=== PATIENT | female | born 1950 | race Caucasian/White ===

== ENCOUNTER 2021-01-23 08:04 | Inpatient (IN) | payer MEDICARE, SELFPAY ==
--- NOTE | ~2021-01-23 | XR_ITS ---
EXAMINATION: XR KNEE, RIGHT CLINICAL INFORMATION: Right knee pain, status post fall COMPARISON: None TECHNIQUE: AP and crosstable lateral of the right knee. FINDINGS: Fracture through the mid body of the patella with oblique orientation in superior to inferior direction extending from anterior to posterior margins is best seen on the lateral view. There is mild distraction of the fracture fragments. Overlying soft tissue swelling and associated joint effusion are seen. No evidence of fracture of the visualized femur, tibia and fibula. No soft tissue air or radiopaque foreign body. XR/XR knee RT 2V IMPRESSION: Mildly displaced right patellar fracture with associated suprapatellar joint effusion and overlying significant soft tissue swelling.
--- NOTE | ~2021-01-23 | FL_ITS ---
EXAMINATION: XR FLUOROSCOPY WITH IMAGES CLINICAL INFORMATION: ORIF right patella COMPARISON: None. TECHNIQUE: Fluoroscopy performed by Dr. Lewis Mota. Fluoroscopy time: 1.1 minutes DAP: 0.654 mGycm2 Images: 2 FINDINGS: Imaging guidance was utilized for a procedure. 2 fluoroscopic images were saved and are available for review. These images demonstrate hardware fixation of the right patella. FL/FL guidance in OR IMPRESSION: Imaging guidance for procedure. For details regarding procedure and findings, please refer to the operative report.
--- NOTE | ~2021-01-23 | XR_ITS ---
EXAMINATION: XR KNEE, RIGHT CLINICAL INFORMATION: Right patellar fracture. COMPARISON: Right knee x-rays performed earlier on the same day. TECHNIQUE: Lateral views of the right knee are obtained. FINDINGS: Displaced oblique fracture through the mid to lower third of the patella is noted with maximum craniocaudal displacement of approximately 1.2 cm anteriorly. Overlying soft tissue swelling and joint effusion representing hemarthrosis are again noted. There could be additional nondisplaced fracture through the inferior tip of the right patella. XR/XR knee RT 1V IMPRESSION: Right patellar fracture/s as described above.
[2021-01-23 08:32] VITALS: BP 113/88; PULSE 65; RESP 17; TEMP 36.9; O2SAT 98; BMI 19.7
--- NOTE | 2021-01-23 08:52 | ED_ITS ---
HPI - Extremity Injury (Lower) General Chief Complaint: Extremity Injury, Lower Stated Complaint: rt knee injury - fall Time Seen by Provider: 01/23/21 08:31 Source: patient Mode of arrival: wheelchair Limitations: no limitations History of Present Illness HPI Narrative: 70 yo female previously healthy here with complaints of right knee pain. Patient tells me that she was out this morning preparing to do her morning row when she slipped landing directly on the right knee. No head injury or loss of consciousness. No other complaints. Not on any AC therapy Related Data Allergies Allergy/AdvReac Type Severity Reaction Status Date / Time No Known Allergies Allergy Verified 01/23/21 09:55 Review of Systems Review of Systems: Yes all other systems are reviewed and are negative Constitutional: Constitutional: Reports no additional constitutional complaints, Denies body ache(s), Denies chills, Denies fever(s), Denies headache(s) and Denies weakness Eyes: Eyes: Reports no additional eye complaints and Denies change in vision ENT: Reports system reviewed and no additional complaints, except as documented, Denies dizziness, Denies headache(s), Denies nasal congestion, Denies nasal discharge and Denies neck pain Cardiovascular: Cardiovascular: Reports no additional cardiovascular complaints, Denies chest pain, Denies leg edema and Denies dyspnea Respiratory: Respiratory: Reports no additional respiratory complaints, Denies cough and Denies dyspnea Gastrointestinal: Gastrointestinal: Reports no additional gastrointestinal complaints, Denies abdominal pain, Denies diarrhea, Denies nausea and Denies vomiting Genitourinary: Genitourinary: Reports no additional female genitourinary complaints and Denies urinary incontinence Musculoskeletal: Musculoskeletal: Reports no additional musculoskeletal complaints, Denies back pain, Reports arthralgias, Denies joint swelling, Reports limited range of motion, Denies neck pain, Denies numbness and Denies ti ngling Integumentary/Breasts: Skin/Breast: Reports system reviewed and no additional complaints, except as docu and Denies rash Neurologic: Reports system reviewed and no additional complaints, except as documented, Denies Abnormal speech present, Denies dizziness, Denies headache(s), Denies numbness, Denies tingling and Denies weakness PMFSH Past Medical History Attestation statement: The following information was validated with the patient. Source: old records reviewed and nursing notes reviewed Social History Social History Advance Directives: No Physical Exam Vital Signs: Vital Signs: Last Vital Signs Temp 97.9 F 01/23/21 11:29 Pulse 62 01/23/21 11:29 Resp 18 01/23/21 11:29 BP 148/88 H 01/23/21 11:29 Pulse Ox 98 01/23/21 11:29 Body Mass Index 19.7 Const: General: cooperative, healthy appearing, comfortable and no acute distress Orientation/consciousness: patient oriented x3 Limitations: no limitations HENMT: Head: Yes normal to inspection Ears: hearing grossly normal bilaterally General nose exam: Normal external nose present Face and sinus: Yes normal facial exam Mouth: Normal oral and palatal mucosa present Throat: Yes posterior oropharynx normal Eyes: General: appearance normal, both eyes and all related structures Pupils: Equal, round and reactive pupils present Neck: Neck: Yes normal visual inspection Chest: Chest palpation & inspection: normal inspection of the chest Resp: Effort & Inspection: normal respiratory effort Auscultation: clear to auscultation bilaterally Cardio: Rate: regular rate Rhythm: regular rhythm Peripheral pulses: Peripheral pulses 2+ throughout GI: Inspection: Yes normal to inspection Palpation (GI): Soft to palpation and nontender Auscultation: normal bowel sounds Back/Spine/Pelvis: Thoracic/Lumbar Spine: thoracic and lumbar spine normal to inspection Skin: General skin exam: no rashes or lesions noted Neuro: General: patient oriented x3, no focal motor deficits and normal sensation to monofilament Cranial nerves: Yes Equal, round and reactive pupils present Cognition (Neuro): normal cognition Speech: No Abnormal speech present Gait exam (Neuro): Normal gait present Motor exam (neuro): 5/5 motor strength present throughout Extrem: Other: to the right knee there is a large amount of swelling with ecchymosis and tenderness. Patient is unable to flex or extend the knee due to pain. There is no tenderness over the quad or the lower extremity. 2+ DP and PT pulses General: Yes normal to inspection, Yes no pedal edema and Yes no calf tenderness Course Course Course Narrative: 70-year-old female here with right knee pain after landing directly on the knee this morning. X-ray shows a patellar fracture with mild displacement. Call out Orthopedics to discuss 1030- spoke to Orthopedics. They will come to evaluate the patient as she may need surgical repair its weekend. Requesting additional images. 1150-patient was seen by Orthopedics. Plan for admission for operative repair minute. Preop labs, COVID screen and EKG are ordered. Per request artur wrap and knee immobilizer placed. MDM - Extremity Injury (Lower) Medical Records Attestation: I reviewed the patient's medical records. Lab Data Attestation: I reviewed the patient's lab results. Result diagrams: 01/23/21 11:03 01/23/21 11:03 Labs: Lab Results 01/23/21 01/23/21 01/23/21 Range/Units 11:03 11:03 11:03 WBC 7.0 (4.8-10.8) X10*3/uL RBC 4.94 (4.20-5.50) X10*6/uL Hgb 14.2 (12.0-16.0) g/dl Hct 41.4 (37.0-47.0) % MCV 83.8 (80.0-98.0) fL MCH 28.7 (27.0-33.0) pg MCHC 34.3 (31.0-35.0) g/dl RDW 12.5 (11.0-16.0) % Plt Count 213 (160-400) X10*3/uL MPV 9.5 (9.4-12.3) fL Immature Gran % (Auto) 0.3 (0.0-0.4) % Neut % (Auto) 72.9 (45-73) % Lymph % (Auto) 20.2 (20-40) % [place] % (Auto) 4.9 (2-11) % Eos % (Auto) 1.3 (0-4) % Baso % (Auto) 0.4 (0-2) % Lymph # (Auto) 1.4 (1.2-4.9) X10*3/uL [place] # (Auto) 0.3 (0.1-1.2) X10*3/uL Eos # (Auto) 0.1 (0.0-0.4) X10*3/uL Baso # (Auto) 0.0 (0.0-0.2) X10*3/uL Abs Immat Gran (auto) 0.02 (0.00-0.03) X10*3/uL Absolute Neuts (auto) 5.1 (2.0-8.3) x10*3/uL Absolute Nucleated RBC 0.000 (0.0-0.012) X10*3/uL Nucleated RBC % (auto) 0.0 (0.0-0.2) /100WBC PT 10.9 (9.9-13.0) SEC INR 1.0 (0.9-1.1) APTT 35.9 (24.1-38.0) SEC Sodium 135 (135-145) mmol/L Potassium 4.7 (3.3-5.1) mmol/L Chloride 101 (96-108) mmol/L Carbon Dioxide 22 (22-29) mmol/L Anion Gap 17 (12-20) BUN 13 (9-16) mg/dL Creatinine 0.64 (0.5-1.4) mg/dL Estim Creat Clear Calc 62.3 Estimated GFR > 60 Random Glucose 97 (60-115) mg/dL Calcium 9.1 (8.4-10.2) mg/dL COVID-19 ([facility]) (Negative) COVID-19 Clin Com Blood Type Antibody Screen 01/23/21 01/23/21 Range/Units 11:03 11:37 WBC (4.8-10.8) X10*3/uL RBC (4.20-5.50) X10*6/uL Hgb (12.0-16.0) g/dl Hct (37.0-47.0) % MCV (80.0-98.0) fL MCH (27.0-33.0) pg MCHC (31.0-35.0) g/dl RDW (11.0-16.0) % Plt Count (160-400) X10*3/uL MPV (9.4-12.3) fL Immature Gran % (Auto) (0.0-0.4) % Neut % (Auto) (45-73) % Lymph % (Auto) (20-40) % [place] % (Auto) (2-11) % Eos % (Auto) (0-4) % Baso % (Auto) (0-2) % Lymph # (Auto) (1.2-4.9) X10*3/uL [place] # (Auto) (0.1-1.2) X10*3/uL Eos # (Auto) (0.0-0.4) X10*3/uL Baso # (Auto) (0.0-0.2) X10*3/uL Abs Immat Gran (auto) (0.00-0.03) X10*3/uL Absolute Neuts (auto) (2.0-8.3) x10*3/uL Absolute Nucleated RBC (0.0-0.012) X10*3/uL Nucleated RBC % (auto) (0.0-0.2) /100WBC PT (9.9-13.0) SEC INR (0.9-1.1) APTT (24.1-38.0) SEC Sodium (135-145) mmol/L Potassium (3.3-5.1) mmol/L Chloride (96-108) mmol/L Carbon Dioxide (22-29) mmol/L Anion Gap (12-20) BUN (9-16) mg/dL Creatinine (0.5-1.4) mg/dL Estim Creat Clear Calc Estimated GFR Random Glucose (60-115) mg/dL Calcium (8.4-10.2) mg/dL COVID-19 ([facility]) Negative (Negative) COVID-19 Clin Com See Note Blood Type O Negative Antibody Screen NEGATIVE Imaging Data right knee xray: Attestation: I personally reviewed and interpreted this imaging study as follows: Radiologist's impression: FINDINGS: Fracture through the mid body of the patella with oblique orientation in superior to inferior direction extending from anterior to posterior margins is best seen on the lateral view. There is mild distraction of the fracture fragments. Overlying soft tissue swelling and associated joint effusion are seen. No evidence of fracture of the visualized femur, tibia and fibula. No soft tissue air or radiopaque foreign body. XR/XR knee RT 2V IMPRESSION: Mildly displaced right patellar fracture with associated suprapatellar joint effusion and overlying significant soft tissue swelling. ? Procedures Procedure Narrative Procedure Narrative: Knee immobilizer and Artur wrap Discharge Plan Discharge Clinical Impression: Closed fracture of right patella Patient Disposition: Admitted As Inpatient
[2021-01-23 11:07] LABS: MANUAL DIFF FLAG NO
[2021-01-23 11:09] LABS: Basophils Percent Auto 0.4 % (0-2); Eosinophils Absolute Auto 0.1 X10*3/uL (0.0-0.4); Eosinophils Percent Auto 1.3 % (0-4); Hematocrit 41.4 % (37.0-47.0); Hemoglobin 14.2 g/dl (12.0-16.0); Imm Gran Abs Auto 0.02 X10*3/uL (0.00-0.03); Imm Gran Pct Auto 0.3 % (0.0-0.4); Lymphocytes Absolute Auto 1.4 X10*3/uL (1.2-4.9); Lymphocytes Percent Auto 20.2 % (20-40); Mean Corpuscular HGB Conc 34.3 g/dl (31.0-35.0); Mean Corpuscular Hemoglobin 28.7 pg (27.0-33.0); Mean Corpuscular Volume 83.8 fL (80.0-98.0); Mean Platelet Volume 9.5 fL (9.4-12.3); Monocytes Absolute Auto 0.3 X10*3/uL (0.1-1.2); Monocytes Percent Auto 4.9 % (2-11); Neutrophils Absolute Auto 5.1 x10*3/uL (2.0-8.3); Neutrophils Percent Auto 72.9 % (45-73); Platelet Count 213 X10*3/uL (160-400); Red Blood Count 4.94 X10*6/uL (4.20-5.50); Red Cell Distribution Width 12.5 % (11.0-16.0)
[2021-01-23] MEDS: ondansetron HCL 4 MG/2 ML VIAL IVPUSH (11:10)
[2021-01-23] MEDS: Morphine Sulfate 2 MG/ML CARTRIDGE IVPUSH (11:12)
[2021-01-23 11:16] LABS: Prothrombin Time 10.9 SEC (9.9-13.0)
[2021-01-23 11:18] LABS: Partial Thromboplastin Time 35.9 SEC (24.1-38.0)
[2021-01-23 11:25] LABS: Anion Gap 17 (12-20); Blood Urea Nitrogen 13 mg/dL (9-16); Calcium 9.1 mg/dL (8.4-10.2); Carbon Dioxide 22 mmol/L (22-29); Chloride 101 mmol/L (96-108); Creatinine Clr Calc Pharmacy 62.3; Estimated Glomerular Filt Rate > 60; Glucose Random 97 mg/dL (60-115); Potassium 4.7 mmol/L (3.3-5.1); Sodium 135 mmol/L (135-145)
--- NOTE | 2021-01-23 11:28 | ECG_ITS ---
Test Reason : EXTREMITY WEAKNESS Blood Pressure : / mmHG Vent. Rate : 059 BPM Atrial Rate : 059 BPM P-R Int : 162 ms QRS Dur : 070 ms QT Int : 466 ms P-R-T Axes : 052 028 062 degrees QTc Int : 461 ms Sinus bradycardia Nonspecific ST abnormality Lateral leads Low voltage QRS Abnormal ECG No previous ECGs available Referred By: Karrie Burns Electronically Signed By:DURGA OLSEN MD
[2021-01-23 11:29] VITALS: BP 148/88; PULSE 62; RESP 18; TEMP 36.6; O2SAT 98
[2021-01-23 11:38] LABS: COVID-19 Test Negative (Negative)
--- NOTE | 2021-01-23 13:08 | PM.IMCN ---
History of Present Illness Data of Consult Service Date: 01/23/21 Requesting physician: Richard Haque Primary Care Provider: Marii Caro MD [facility] Reason for consult: pre operative evaluation This is a 70-year-old female with no significant past medical history who presented to the emergency department after a mechanical fall. She denies any dizziness prior to her fall, reported that she slipped on ice and fell onto her knees. Workup in the emergency department revealed displaced oblique fracture of the right patella. She was admitted to the ortho service and hospitalists were consulted for a preoperative evaluation. Patient states that she has no medical issues and does not take any medication at home. She has had severe nausea and vomiting in the past with general anesthesia. She had a stress test many years ago due to bigeminy and palpitations which was negative and since that time has had no indication for cardiology follow up. She has no shortness of breath. Her EKG showed sinus bradycardia. Routine lab work shows no evidence of electrolyte abnormalities or renal dysfunction. Review of Systems Review of Systems: Yes all other systems are reviewed and are negative Constitutional: Constitutional: Denies chills and Denies fever(s) Cardiovascular: Cardiovascular: Denies chest pain Respiratory: Respiratory: Denies cough Gastrointestinal: Gastrointestinal: Denies abdominal pain PMFSH Functional capacity: independent ambulation Family History Brother Sarcoidosis Pertinent family history: . Surgical History (Updated 01/23/21 @ 13:38 by ORTIZ Thompson) H/O right wrist surgery Social History (Updated 01/23/21 @ 13:39 by ORTIZ Thompson) Alcohol intake: current Alcohol intake frequency: holidays/special occasions only Patient Tobacco Use Status: Never used Tobacco Advance Directives: No Meds Allergies Allergy/AdvReac Type Severity Reaction Status Date / Time No Known Allergies Allergy Verified 01/23/21 09:55 Active Medications: Current Medications Acetaminophen (Acetaminophen Supp 650 Mg Supp.Rect) 650 mg [place] Q6H PRN PRN Reason: Pain, Mild (Pain Scale 1-3) Docusate Sodium (Docusate Sodium 100 Mg Capsule) 100 mg PO BID SLY Ondansetron HCl (Ondansetron Hcl 4 Mg/2 Ml Vial) 4 mg IVPUSH Q8H PRN PRN Reason: Nausea and Vomiting Oxycodone HCl (Oxycodone Hcl Immed Release 5 Mg Tablet) 5 mg PO Q4H PRN PRN Reason: Pain, Moderate (Pain Scale 4-6 Physical Exam Vital Signs and Narrative: Vital Signs: Last Vital Signs Temp 97.9 F 01/23/21 11:29 Pulse 62 01/23/21 11:29 Resp 18 01/23/21 11:29 BP 148/88 H 01/23/21 11:29 Pulse Ox 98 01/23/21 11:29 Body Mass Index 19.7 Const: General: cooperative, healthy appearing, comfortable, no acute distress, alert and awake Nutritional Appearance: well nourished Orientation/consciousness: patient oriented x3 HENMT: Head: Yes normocephalic and Yes atraumatic Eyes: Sclerae: sclerae normal Resp: Effort & Inspection: normal respiratory effort and no respiratory distress Auscultation: clear to auscultation bilaterally Cardio: Rate: regular rate Rhythm: regular rhythm GI: Inspection: No distended Palpation (GI): Soft to palpation and nontender Neuro: General: patient oriented x3 Cranial nerves: Yes CN's II-XII intact bilaterally and Yes Bilaterally intact EOM present Extrem: Other: right knee swelling; abrasion; no erythema Results Labs CBC and Chem 7: 01/23/21 11:03 01/23/21 11:03 Labs: Laboratory Results - last 24 hr 01/23/21 01/23/21 01/23/21 11:03 11:03 11:03 MCV 83.8 MCH 28.7 MCHC 34.3 RDW 12.5 Plt Count 213 MPV 9.5 Immature Gran % (Auto) 0.3 Neut % (Auto) 72.9 Lymph % (Auto) 20.2 [place] % (Auto) 4.9 Eos % (Auto) 1.3 Baso % (Auto) 0.4 Lymph # (Auto) 1.4 [place] # (Auto) 0.3 Eos # (Auto) 0.1 Baso # (Auto) 0.0 Abs Immat Gran (auto) 0.02 Absolute Neuts (auto) 5.1 Absolute Nucleated RBC 0.000 Nucleated RBC % (auto) 0.0 PT 10.9 INR 1.0 APTT 35.9 Anion Gap 17 Estim Creat Clear Calc 62.3 Estimated GFR > 60 Random Glucose 97 Calcium 9.1 COVID-19 ([facility]) COVID-19 Clin Com Blood Type Antibody Screen 01/23/21 01/23/21 11:03 11:37 MCV MCH MCHC RDW Plt Count MPV Immature Gran % (Auto) Neut % (Auto) Lymph % (Auto) [place] % (Auto) Eos % (Auto) Baso % (Auto) Lymph # (Auto) [place] # (Auto) Eos # (Auto) Baso # (Auto) Abs Immat Gran (auto) Absolute Neuts (auto) Absolute Nucleated RBC Nucleated RBC % (auto) PT INR APTT Anion Gap Estim Creat Clear Calc Estimated GFR Random Glucose Calcium COVID-19 ([facility]E) Negative COVID-19 Clin Com See Note Blood Type O Negative Antibody Screen NEGATIVE Imaging Radiologist's Impressions: Impressions Knee X-Ray 01/23/21 08:29 IMPRESSION: Mildly displaced right patellar fracture with associated suprapatellar joint effusion and overlying significant soft tissue swelling. Knee X-Ray 01/23/21 09:55 IMPRESSION: Right patellar fracture/s as described above. Assessment and Plan (1) Closed fracture of right patella: Status: Acute This is a 70-year-old female with no known past medical history who presents to the emergency department after mechanical fall found to have a right patellar fracture Right patellar fracture Management per Orthopedic Service No cardiopulmonary disease. Good functional status. No ischemic changes on EKG. RCRI Class 1 Risk. No prior workup required prior to planned procedure. There are no active medical conditions at this time. Thank you for allowing us to participate in the care of this patient. We will follow along with you. Attending: Dr. Luque
--- NOTE | 2021-01-23 14:22 | PC.NURSE ---
NAD, NO PAIN AT REST, ATE LUNCH, KNEE IMMOBILIZER PLACED AND PT HAS BEEN PLACING ICE ON KNEE ON/OFF
[2021-01-23] MEDS: oxyCODONE HCl Immed Release 5 MG TABLET PO ×3 (14:55→22:52)
--- NOTE | 2021-01-23 15:32 | P.HPOP_ITS ---
History of Present Illness History of Present Illness Date of Service: 01/23/21 Chief complaint: R PHAN FACTDICK Narrative: Karina Armstrong is a 70 year old female who presented to the ED after sustaining a fall onto her knee. She states she slipped on ice and fell. She is unable to weight bear on the right lower extremity due to pain. While in the ED, xrays were significant for a displaced patella fracture. Orthopedics was called and the decision was made to admit her to our service for surgical intervention. Hospitalist team was consulted for pre op clearance. She states she lives on a second floor apartment and helps care for her daughter. 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 Review of Systems Review of Systems: Yes all other systems are reviewed and are negative PMFSH Past Medical History Functional capacity: independent ambulation Family History Family History Brother Sarcoidosis Surgical History Surgical History H/O right wrist surgery Social History Social History Alcohol intake: current Alcohol intake frequency: holidays/special occasions only Patient Tobacco Use Status: Never used Tobacco Advance Directives: No Meds Allergies Allergy/AdvReac Type Severity Reaction Status Date / Time No Known Allergies Allergy Verified 01/23/21 09:55 Active Medications: Current Medications Acetaminophen (Acetaminophen Supp 650 Mg Supp.Rect) 650 mg [place] Q6H PRN PRN Reason: Pain, Mild (Pain Scale 1-3) Docusate Sodium (Docusate Sodium 100 Mg Capsule) 100 mg PO BID SLY Dextrose/Sodium Chloride (D51/2ns) 1,000 mls @ 80 mls/hr IVCONT .[id number] SLY Ondansetron HCl (Ondansetron Hcl 4 Mg/2 Ml Vial) 4 mg IVPUSH Q8H PRN PRN Reason: Nausea and Vomiting Oxycodone HCl (Oxycodone Hcl Immed Release 5 Mg Tablet) 5 mg PO Q4H PRN PRN Reason: Pain, Moderate (Pain Scale 4-6 Last Admin: 01/23/21 14:55 Dose: 5 mg Documented by: Sodium Chloride (0.9 % Sodium Chloride Flush 3 Ml Syringe) 3 ml IVFLUSH QSHIFT [facility] Trazodone HCl (Trazodone Hcl 25 Mg Halftab) 25 mg PO BEDTIME PRN PRN Reason: Sleep Home Medications Medication Instructions Recorded Confirmed Last Taken Type No Known Home Meds 01/23/21 01/23/21 Unknown History Physical Exam Vital Signs: Vital Signs: Last Vital Signs Temp 97.9 F 01/23/21 11:29 Pulse 62 01/23/21 11:29 Resp 18 01/23/21 11:29 BP 148/88 H 01/23/21 11:29 Pulse Ox 98 01/23/21 11:29 Body Mass Index 19.7 Const: General: cooperative, healthy appearing, comfortable, no acute distress, well developed and alert Orientation/consciousness: patient oriented x3 HENMT: Head: Yes normal to inspection, Yes normocephalic and Yes atraumatic Eyes: General: appearance normal, both eyes and all related structures Neck: Neck: Yes normal visual inspection and Yes no lymphadenopathy Resp: Effort & Inspection: normal respiratory effort and able to speak in complete sentences Cardio: Rate: regular rate Peripheral pulses: Peripheral pulses 2+ throughout GI: Inspection: Yes normal to inspection Palpation (GI): Soft to palpation Skin: General skin exam: no rashes or lesions noted Neuro: General: patient oriented x3 Extrem: Other: Skin intact. Right knee large hematoma with ecchymosis and tenderness.? Patient is unable to flex or extend the knee due to pain.? There is no tenderness over the quad or the lower extremity. pulses present. Psych: Appearance: grossly normal Mental Status: mental status grossly normal Results Labs Result Diagrams: 01/23/21 11:03 01/23/21 11:03 Labs: H & H 01/23/21 Range/Units 11: Hgb 14.2 (12.0-16.0) g/dl Hct 41.4 (37.0-47.0) % Coagulation 01/23/21 Range/Units 11: INR 1.0 (0.9-1.1) All other labs normal. Assessment and Plan (1) Closed fracture of right patella: Status: Acute I discussed the case with Dr Mota and explained the extent of the injury to the patient and options available which include surgical intervention. I explained the procedure in detail along with the length of recovery and rehab course. I explained the risk, benefits and alternatives. Risk including, but not limited to infection, blood clots, bleeding, non union or malunion and nerve/tissue damage to surrounding areas. I answered all their questions and with their understanding they have consented to move forward with Operative Fixation of the Right patella. The patient will be T&S, med clearance obtained and NPO after midnight. Quality Stroke Does the patient have a stroke diagnosis?: No VTE Prior VTE?: No VTE Risk Level:: Surgical - high VTE Device Contraindication: N/A - Device Ordered VTE Drug Contraindication: Treatment Not Indicated Procedures Date of Service Date of Service: 01/23/21
[2021-01-23] MEDS: Dextrose 5 % and 0.45 % NaCl 1,000 ML 80 ML IVCONT ×2 (15:56→18:07)
[2021-01-23 17:38] VITALS: BP 125/65; PULSE 55; RESP 18; TEMP 37.3; O2SAT 96
[2021-01-23 20:09] VITALS: BP 127/66; PULSE 61; RESP 18; TEMP 37.1; O2SAT 97
[2021-01-23] MEDS: traZODone HCL 25 MG HALFTAB PO (22:59)
[2021-01-24] VITALS (12 sets, daily range): BP systolic 92–145; BP diastolic 59–91; PULSE 59–82; RESP 15–18; TEMP 36.4–36.9; O2SAT 95–100
[2021-01-24] MEDS: Morphine Sulfate 4 MG/ML CARTRIDGE IVPUSH (02:04)
[2021-01-24 06:27] LABS: MANUAL DIFF FLAG NO
[2021-01-24 07:04] LABS: Basophils Absolute Auto 0.1 X10*3/uL (0.0-0.2); Basophils Percent Auto 0.7 % (0-2); Eosinophils Absolute Auto 0.1 X10*3/uL (0.0-0.4); Eosinophils Percent Auto 1.2 % (0-4); Hematocrit 32.5 % (37.0-47.0); Hemoglobin 11.2 g/dl (12.0-16.0); Imm Gran Abs Auto 0.03 X10*3/uL (0.00-0.03); Imm Gran Pct Auto 0.4 % (0.0-0.4); Lymphocytes Absolute Auto 1.8 X10*3/uL (1.2-4.9); Mean Corpuscular HGB Conc 34.5 g/dl (31.0-35.0); Mean Corpuscular Hemoglobin 28.9 pg (27.0-33.0); Monocytes Absolute Auto 0.6 X10*3/uL (0.1-1.2); Monocytes Percent Auto 7.9 % (2-11); Neutrophils Absolute Auto 4.9 x10*3/uL (2.0-8.3); Neutrophils Percent Auto 65.8 % (45-73); Platelet Count 189 X10*3/uL (160-400); Red Blood Count 3.87 X10*6/uL (4.20-5.50); Red Cell Distribution Width 12.6 % (11.0-16.0); White Blood Count 7.5 X10*3/uL (4.8-10.8)
[2021-01-24 07:06] LABS: Anion Gap 9 (12-20); Blood Urea Nitrogen 8 mg/dL (9-16); Calcium 8.6 mg/dL (8.4-10.2); Carbon Dioxide 26 mmol/L (22-29); Chloride 100 mmol/L (96-108); Creatinine Clr Calc Pharmacy 58.7; Estimated Glomerular Filt Rate > 60; Glucose Fasting 118 mg/dL (60-99); Potassium 4.3 mmol/L (3.3-5.1); Sodium 131 mmol/L (135-145)
[2021-01-24] MEDS: Dextrose 5 % and 0.45 % NaCl 1,000 ML 80 ML IVCONT (07:40)
[2021-01-24] MEDS: ondansetron HCL 4 MG/2 ML VIAL IVPUSH (07:40)
--- NOTE | 2021-01-24 08:46 | P.CONAN_ITS ---
[facility] Active Problems Active Problems: All Active Problems (Updated 01/23/21 @ 11:54 by Karrie villar NP) Closed fracture of right patella (Acute) Past Medical History Functional capacity: independent ambulation Family History Family History Brother Sarcoidosis Family history of problems with anesthesia: No Surgical History Surgical History H/O right wrist surgery History of Problems with Anesthesia: No Social History Social History Household Members: Family Housing: Apartment Do you presently have visiting nurse or other home services: No Alcohol intake: current Alcohol intake frequency: holidays/special occasions only Patient Tobacco Use Status: Never used Tobacco Meds Allergies Allergy/AdvReac Type Severity Reaction Status Date / Time No Known Allergies Allergy Verified 01/23/21 09:55 Active Medications: Current Medications Acetaminophen (Acetaminophen Supp 650 Mg Supp.Rect) 650 mg [place] Q6H PRN PRN Reason: Pain, Mild (Pain Scale 1-3) Docusate Sodium (Docusate Sodium 100 Mg Capsule) 100 mg PO BID [facility] Last Admin: 01/23/21 19:49 Dose: Not Given Documented by: Dextrose/Sodium Chloride (D51/2ns) 1,000 mls @ 80 mls/hr IVCONT .[id number] [facility] Last Admin: 01/24/21 07:40 Dose: 80 mls/hr Documented by: Cefazolin Sodium/Dextrose (Ancef) 2 gm in 50 mls @ 100 mls/hr IV PREOP ONE Stop: 01/24/21 09:07 Ondansetron HCl (Ondansetron Hcl 4 Mg/2 Ml Vial) 4 mg IVPUSH Q8H PRN PRN Reason: Nausea and Vomiting Last Admin: 01/24/21 07:40 Dose: 4 mg Documented by: Oxycodone HCl (Oxycodone Hcl Immed Release 5 Mg Tablet) 5 mg PO Q4H PRN PRN Reason: Pain, Moderate (Pain Scale 4-6 Last Admin: 01/23/21 22:52 Dose: 5 mg Documented by: Sodium Chloride (0.9 % Sodium Chloride Flush 3 Ml Syringe) 3 ml IVFLUSH QSHIFT SLY Last Admin: 01/24/21 00:18 Dose: Not Given Documented by: Trazodone HCl (Trazodone Hcl 25 Mg Halftab) 25 mg PO BEDTIME PRN PRN Reason: Sleep Last Admin: 01/23/21 22:59 Dose: 25 mg Documented by: Home Medications Medication Instructions Recorded Confirmed Last Taken Type No Known Home Meds 01/23/21 01/23/21 Unknown History Exam Exam Date and Time: January 24, 2021 0846 Height,Weight and Vital Signs: Height 5 ft 2 in Weight 48.988 kg Last Vital Signs Temp 98 F 01/24/21 07:07 Pulse 60 01/24/21 07:07 Resp 18 01/24/21 07:07 BP 145/91 H 01/24/21 07:07 Pulse Ox 98 01/24/21 07:07 Pertinent Lab Results Pertinent Lab Results: Laboratory Tests 01/23/21 01/23/21 01/23/21 11:03 11:03 11:03 WBC 7.0 RBC 4.94 Hgb 14.2 Hct 41.4 MCV 83.8 MCH 28.7 MCHC 34.3 RDW 12.5 Plt Count 213 MPV 9.5 Immature Gran % (Auto) 0.3 Neut % (Auto) 72.9 Lymph % (Auto) 20.2 [place] % (Auto) 4.9 Eos % (Auto) 1.3 Baso % (Auto) 0.4 Lymph # (Auto) 1.4 [place] # (Auto) 0.3 Eos # (Auto) 0.1 Baso # (Auto) 0.0 Abs Immat Gran (auto) 0.02 Absolute Neuts (auto) 5.1 Absolute Nucleated RBC 0.000 Nucleated RBC % (auto) 0.0 PT 10.9 INR 1.0 APTT 35.9 Sodium 135 Potassium 4.7 Chloride 101 Carbon Dioxide 22 Anion Gap 17 BUN 13 Creatinine 0.64 Estim Creat Clear Calc 62.3 Estimated GFR > 60 Random Glucose 97 Fasting Glucose Calcium 9.1 COVID-19 (VALE) COVID-19 Clin Com Blood Type Antibody Screen 01/23/21 01/23/21 01/24/21 11:03 11:37 06:11 WBC 7.5 RBC 3.87 L D Hgb 11.2 L D Hct 32.5 L D MCV 84.0 MCH 28.9 MCHC 34.5 RDW 12.6 Plt Count 189 MPV 10.0 Immature Gran % (Auto) 0.4 Neut % (Auto) 65.8 Lymph % (Auto) 24.0 [place] % (Auto) 7.9 Eos % (Auto) 1.2 Baso % (Auto) 0.7 Lymph # (Auto) 1.8 [place] # (Auto) 0.6 Eos # (Auto) 0.1 Baso # (Auto) 0.1 Abs Immat Gran (auto) 0.03 Absolute Neuts (auto) 4.9 Absolute Nucleated RBC 0.000 Nucleated RBC % (auto) 0.0 PT INR APTT Sodium Potassium Chloride Carbon Dioxide Anion Gap BUN Creatinine Estim Creat Clear Calc Estimated GFR Random Glucose Fasting Glucose Calcium COVID-19 (VALE) Negative COVID-19 [facility] Com See Note Blood Type O Negative Antibody Screen NEGATIVE 01/24/21 06:11 WBC RBC Hgb Hct MCV MCH MCHC RDW Plt Count MPV Immature Gran % (Auto) Neut % (Auto) Lymph % (Auto) [place] % (Auto) Eos % (Auto) Baso % (Auto) Lymph # (Auto) [place] # (Auto) Eos # (Auto) Baso # (Auto) Abs Immat Gran (auto) Absolute Neuts (auto) Absolute Nucleated RBC Nucleated RBC % (auto) PT INR APTT Sodium 131 L Potassium 4.3 Chloride 100 Carbon Dioxide 26 Anion Gap 9 L BUN 8 L Creatinine 0.68 Estim Creat Clear Calc 58.7 Estimated GFR > 60 Random Glucose Fasting Glucose 118 H Calcium 8.6 COVID-19 (VALE) COVID-19 Clin Com Blood Type Antibody Screen Airway Mallampati Class: I TM Dist: >3cm Loose/Missing/Broken Teeth: No Heart: RRR Lungs: CTA Assessment and Plan Assessment Anesthesia Assessment: Anesthesia Plan Discussed Final Anesthetic Review Family History of Problems with Anesthesia: No History of Problems with Anesthesia: No NPO: No ASA Class: I Final Preanesthetic Review: No Changes in Pt Med Stat, Meds/Allgs Chart Reviewed, Consent Obtained/Reviewed and Anes Risks/Benef Reviewed Patient Risk: Low Procedure Risk: Intermediate Anesthetic Plan Anesthetic Plan: GA and Regional Block Disposition: Standard PACU
--- NOTE | 2021-01-24 11:25 | P.PNIM_ITS ---
Subjective Subjective Date of Service: 01/24/21 Interval History: seen and examined this morning follow up medical consultation no overnight events reporting severe pain in right knee; nausea with pain medication Review of Systems Review of Systems: Yes all other systems are reviewed and are negative Constitutional Constitutional: Denies chills and Denies fever(s) Cardiovascular Cardiovascular: Denies chest pain Respiratory Respiratory: Denies cough Gastrointestinal Gastrointestinal: Denies abdominal pain Physical Exam Vital Signs: Vital Signs: Last Vital Signs Temp 98 F 01/24/21 07:07 Pulse 60 01/24/21 07:07 Resp 18 01/24/21 07:07 BP 145/91 H 01/24/21 07:07 Pulse Ox 98 01/24/21 07:07 Body Mass Index 19.7 Const: General: cooperative, healthy appearing, comfortable, no acute distress, alert and awake Nutritional Appearance: well nourished Orientation/consciousness: patient oriented x3 HENMT: Head: Yes normocephalic and Yes atraumatic Eyes: Sclerae: sclerae normal Resp: Effort & Inspection: normal respiratory effort and no respiratory distress Auscultation: clear to auscultation bilaterally Cardio: Rate: regular rate Rhythm: regular rhythm GI: Inspection: No distended Palpation (GI): Soft to palpation and nontender Neuro: General: patient oriented x3 Cranial nerves: Yes CN's II-XII intact bilaterally and Yes Bilaterally intact EOM present Extrem: Other: right leg in knee immobilizer; right knee swelling Objective Data Active Medications Acetaminophen (Acetaminophen Supp 650 Mg Supp.Rect) 650 mg [place] Q6H PRN PRN Reason: Pain, Mild (Pain Scale 1-3) Docusate Sodium (Docusate Sodium 100 Mg Capsule) 100 mg PO BID S[facility] Last Admin: 01/23/21 19:49 Dose: Not Given Documented by: STEVAN Non-Admin Reason: Patient Refused Fentanyl (Fentanyl Citrate/Pf 100 Mcg/2 Ml Vial) 25 mcg IVPUSH Q5M PRN; Protocol PRN Reason: Pain, Moderate (Pain Scale 4-6 Hydromorphone HCl (Hydromorphone Hcl 0.5 Mg/0.5 Ml Syringe) 0.25 mg IVPUSH Q5M PRN; Protocol PRN Reason: Pain, Severe (Pain Scale 7-10) Dextrose/Sodium Chloride (D51/2ns) 1,000 mls @ 80 mls/hr IVCONT .[id number] [facility] Last Admin: 01/24/21 07:40 Dose: 80 mls/hr Documented by: JEB Promethazine HCl 12.5 mg/ (Sodium Chloride) 50.5 mls @ 202 mls/hr IV ONCE PRN PRN Reason: Nausea and Vomiting Ondansetron HCl (Ondansetron Hcl 4 Mg/2 Ml Vial) 4 mg IVPUSH Q8H PRN PRN Reason: Nausea and Vomiting Last Admin: 01/24/21 07:40 Dose: 4 mg Documented by: JEB Ondansetron HCl (Ondansetron Hcl 4 Mg/2 Ml Vial) 4 mg IVPUSH ONCE PRN PRN Reason: Nausea and Vomiting Oxycodone HCl (Oxycodone Hcl Immed Release 5 Mg Tablet) 5 mg PO Q4H PRN PRN Reason: Pain, Moderate (Pain Scale 4-6 Last Admin: 01/23/21 22:52 Dose: 5 mg Documented by: STEVAN Sodium Chloride (0.9 % Sodium Chloride Flush 3 Ml Syringe) [facility] Last Admin: 01/24/21 00:18 Dose: Not Given Documented by: JESUS Non-Admin Reason: IV Running Trazodone HCl (Trazodone Hcl 25 Mg Halftab) 25 mg PO BEDTIME PRN PRN Reason: Sleep Last Admin: 01/23/21 22:59 Dose: 25 mg Documented by: STEVAN Labs CBC & Chem 7: 01/24/21 06:11 01/24/21 06:11 Labs: Laboratory Results - last 24 hr 01/23/21 01/23/21 01/23/21 11:03 11:03 11:37 MCV MCH MCHC RDW Plt Count MPV Immature Gran % (Auto) Neut % (Auto) Lymph % (Auto) [place] % (Auto) Eos % (Auto) Baso % (Auto) Lymph # (Auto) [place] # (Auto) Eos # (Auto) Baso # (Auto) Abs Immat Gran (auto) Absolute Neuts (auto) Absolute Nucleated RBC Nucleated RBC % (auto) Anion Gap 17 Estim Creat Clear Calc 62.3 Estimated GFR > 60 Random Glucose 97 Fasting Glucose Calcium 9.1 COVID-19 ([facility]) Negative COVID-19 Clin Com See Note Blood Type O Negative Antibody Screen NEGATIVE 01/24/21 01/24/21 06:11 06:11 MCV 84.0 MCH 28.9 MCHC 34.5 RDW 12.6 Plt Count 189 MPV 10.0 Immature Gran % (Auto) 0.4 Neut % (Auto) 65.8 Lymph % (Auto) 24.0 [place] % (Auto) 7.9 Eos % (Auto) 1.2 Baso % (Auto) 0.7 Lymph # (Auto) 1.8 [place] # (Auto) 0.6 Eos # (Auto) 0.1 Baso # (Auto) 0.1 Abs Immat Gran (auto) 0.03 Absolute Neuts (auto) 4.9 Absolute Nucleated RBC 0.000 Nucleated RBC % (auto) 0.0 Anion Gap 9 L Estim Creat Clear Calc 58.7 Estimated GFR > 60 Random Glucose Fasting Glucose 118 H Calcium 8.6 COVID-19 (VALE) COVID-19 Clin Com Blood Type Antibody Screen Assessment and Plan (1) Closed fracture of right patella: Status: Acute (2) Acute blood loss anemia: Status: Acute (3) Hyponatremia: Status: Acute Assessment and Plan: This is a 70-year-old female with no known past medical history who presents to the emergency department after mechanical fall found to have a right patellar fracture Right patellar fracture Management per Orthopedic Service surgery planned for today Hyponatremia, mild d/c IVF follow BMP Acute blood loss anemia r/t hemarthrosis in setting of patella fracture no indication for transfusion at this time follow CBC Attending: Dr. Craft Quality Stroke Does the patient have a stroke diagnosis?: No VTE Prior VTE?: No VTE Risk Level:: Surgical - high VTE Device Contraindication: N/A - Device Ordered VTE Drug Contraindication: Treatment Not Indicated
--- NOTE | 2021-01-24 11:50 | MHC.SHP ---
Pre-Procedural Eval Section A Date of Service: 01/24/21 The patient is an INPATIENT: Yes Changes since office visit: Yes Patient answered all questions; No Cold of Flu in the past 2 weeks, No New Medical Problems and No Changes in Medication The History & Physical has been completed within 30 days and I have reviewed it.: Yes Section B Chief Complaint: R PATELIA FACTURE Allergies: Allergies Allergy/AdvReac Type Severity Reaction Status Date / Time No Known Allergies Allergy Verified 01/23/21 09:55 Plan I have reviewed the history and physical and performed a pertinent physical examination on my patient. No changes have occurred unless specified.
--- NOTE | 2021-01-24 11:51 | PM.OP ---
Brief Operative Note Date of Service: 01/24/21 Pre-op diagnosis: right patella fracture Post-op diagnosis: same Procedure: ORIF right patella Implants: 30 mm 3.5 cannulated partially threaded screw-synthes x2 cerclage wire .054 x2 Surgeon: Lewis Mota MD Anesthesia: GETA and regional Was an Call Circuit Worker used for this Procedure?: Yes Call Circuit Worker: Richard Haque Estimated blood loss (mL): 50 IV fluids (mL): 1,000 Pathology: none sent Condition: stable Disposition: PACU
--- NOTE | 2021-01-24 13:02 | MHC.CM.PN ---
CM ATTEMPTED TO MEET W/PT EARLIER TODAY , CM WILL HOWEVER PT OFF UNIT IN SURGERY, CM WILL REVISIT
--- NOTE | 2021-01-24 15:28 | MHC.CM.PN ---
IMM 01/24/21, EMR REVIEWED PT ADMITTED W/R PATELLA FX, ORIF DONE TODAY, CM MET W/PT WHO REPORTS SHE IS INDEPENDENT AT BASELINE, NO DME AND NO HOME SERVICES, PT VERIFIES PCP THANH TARIQ AND HCP SON ION [phone], COPY REQUESTED, PT REPORTS SHE WILL GO HOME W/SERVICES AND DOES NOT WANT STR, NO PREFERENCE OF VNA. D/C PLAN: HOME W/[facility], PT WILL ARRANGE FAMILY/FRIEND FOR TRANSPORT.
[2021-01-24] MEDS: 0.9 % Sodium Chloride Flush 3 ML SYRINGE IVFLUSH ×2 (15:29→23:12)
[2021-01-24] MEDS: ceFAZolin Sodium/Dextrose,Iso 2 GM/50 ML PIGGYBACK IV (15:30)
--- NOTE | 2021-01-24 16:03 | PC.NURSE ---
PT RETURN FROM PACU AT 1330. ALERT AND COMFORTABLE. BRACE IN PLACE. DENIES PAIN. VOIDED WELL ON BED HICSK
[2021-01-24] MEDS: Docusate Sodium 100 MG CAPSULE PO (19:50)
[2021-01-25] VITALS (7 sets, daily range): BP systolic 101–135; BP diastolic 51–74; PULSE 61–75; RESP 17–20; TEMP 36.2–37.1; O2SAT 95–98
[2021-01-25 06:15] LABS: MANUAL DIFF FLAG NO
[2021-01-25 06:20] LABS: Basophils Percent Auto 0.2 % (0-2); Eosinophils Absolute Auto 0.1 X10*3/uL (0.0-0.4); Eosinophils Percent Auto 0.8 % (0-4); Hematocrit 30.2 % (37.0-47.0); Hemoglobin 10.3 g/dl (12.0-16.0); Imm Gran Abs Auto 0.04 X10*3/uL (0.00-0.03); Imm Gran Pct Auto 0.4 % (0.0-0.4); Lymphocytes Percent Auto 22.3 % (20-40); Mean Corpuscular HGB Conc 34.1 g/dl (31.0-35.0); Mean Corpuscular Hemoglobin 28.5 pg (27.0-33.0); Mean Corpuscular Volume 83.4 fL (80.0-98.0); Mean Platelet Volume 9.7 fL (9.4-12.3); Monocytes Percent Auto 10.8 % (2-11); Neutrophils Percent Auto 65.5 % (45-73); Platelet Count 181 X10*3/uL (160-400); Red Blood Count 3.62 X10*6/uL (4.20-5.50); Red Cell Distribution Width 12.6 % (11.0-16.0); White Blood Count 9.2 X10*3/uL (4.8-10.8)
[2021-01-25 06:34] LABS: Anion Gap 12 (12-20); Blood Urea Nitrogen 10 mg/dL (9-16); Calcium 8.7 mg/dL (8.4-10.2); Carbon Dioxide 25 mmol/L (22-29); Chloride 105 mmol/L (96-108); Creatinine Clr Calc Pharmacy 59.5; Estimated Glomerular Filt Rate > 60; Glucose Fasting 99 mg/dL (60-99); Potassium 4.3 mmol/L (3.3-5.1); Sodium 138 mmol/L (135-145)
[2021-01-25] MEDS: 0.9 % Sodium Chloride Flush 3 ML SYRINGE IVFLUSH ×2 (08:00→17:13)
[2021-01-25] MEDS: oxyCODONE HCl Immed Release 5 MG TABLET PO (08:34)
[2021-01-25] MEDS: Morphine Sulfate 2 MG/ML CARTRIDGE IVPUSH ×4 (09:07→21:14)
--- NOTE | 2021-01-25 09:11 | P.PNIM_ITS ---
Subjective Subjective Date of Service: 01/25/21 Review of Systems Follow up consult ORIF right patella Lots of pain this morning after block wore off layin gin bed unable to do PT at this time d/t pain Physical Exam Vital Signs: Vital Signs: Last Vital Signs Temp 97.2 F 01/25/21 07:43 Pulse 65 01/25/21 07:43 Resp 18 01/25/21 07:43 BP 101/51 L 01/25/21 07:43 Pulse Ox 97 01/25/21 07:43 Body Mass Index 19.7 Appearing in no acute distress lung sounds are clear to auscultation heart regular rate rhythm, clear S1, S2 positive bowel sounds, abdomen is soft, nontender neuro patient is alert x3, no focal deficits MSK left knee pain brace/cpm on Objective Data Active Medications Acetaminophen (Acetaminophen 325 Mg Tablet) 650 mg PO Q4H PRN PRN Reason: Pain, Mild (Pain Scale 1-3) Docusate Sodium (Docusate Sodium 100 Mg Capsule) 100 mg PO BID [facility] Last Admin: 01/25/21 08:00 Dose: Not Given Documented by: CM Non-Admin Reason: Patient Refused Enoxaparin Sodium (Enoxaparin Sodium 40 Mg/0.4 Ml Syringe) 40 mg SUBCUT Q24H [facility] Morphine Sulfate (Morphine Sulfate 2 Mg/Ml Cartridge) 2 mg IVPUSH Q3H PRN; Protocol PRN Reason: pain Last Admin: 01/25/21 09:07 Dose: 2 mg Documented by: CM Ondansetron HCl (Ondansetron Hcl 4 Mg/2 Ml Vial) 4 mg IVPUSH Q8H PRN PRN Reason: Nausea and Vomiting Last Admin: 01/24/21 07:40 Dose: 4 mg Documented by: JEB Oxycodone HCl (Oxycodone Hcl Immed Release 5 Mg Tablet) 5 mg PO Q4H PRN PRN Reason: Pain, Moderate (Pain Scale 4-6 Last Admin: 01/25/21 08:34 Dose: 5 mg Documented by: CM Sodium Chloride (0.9 % Sodium Chloride Flush 3 Ml Syringe) 3 ml IVFLUSH QSHIFT [facility] Last Admin: 01/25/21 08:00 Dose: 3 ml Documented by: CM Trazodone HCl (Trazodone Hcl 25 Mg Halftab) 25 mg PO BEDTIME PRN PRN Reason: Sleep Last Admin: 01/23/21 22:59 Dose: 25 mg Documented by: STEVAN Labs CBC & Chem 7: 01/25/21 06:10 01/25/21 06:10 Labs: Laboratory Results - last 24 hr 01/25/21 01/25/21 06:10 06:10 MCV 83.4 MCH 28.5 MCHC 34.1 RDW 12.6 Plt Count 181 MPV 9.7 Immature Gran % (Auto) 0.4 Neut % (Auto) 65.5 Lymph % (Auto) 22.3 [place] % (Auto) 10.8 Eos % (Auto) 0.8 Baso % (Auto) 0.2 Lymph # (Auto) 2.0 [place] # (Auto) 1.0 Eos # (Auto) 0.1 Baso # (Auto) 0.0 Abs Immat Gran (auto) 0.04 H Absolute Neuts (auto) 6.0 Absolute Nucleated RBC 0.000 Nucleated RBC % (auto) 0.0 Anion Gap 12 Estim Creat Clear Calc 59.5 Estimated GFR > 60 Fasting Glucose 99 Calcium 8.7 Assessment and Plan (1) Closed fracture of right patella: Status: Acute (2) Low blood pressure reading: Status: Acute Assessment and Plan: This is a 70-year-old female with no known past medical history who presents to the emergency department after mechanical fall found to have a right patellar fracture Right patellar fracture Management per Orthopedic Service added morphine for pain management Low blood pressure reading post op follow BP closely Hyponatremia resolved Acute blood loss anemia r/t hemarthrosis in setting of patella fracture no indication for transfusion at this time follow CBC Attending Dr. Galarza Quality Stroke Does the patient have a stroke diagnosis?: No VTE Prior VTE?: No VTE Risk Level:: Surgical - high VTE Device Contraindication: N/A - Device Ordered VTE Drug Contraindication: Treatment Not Indicated
[2021-01-25] MEDS: Enoxaparin Sodium 40 MG/0.4 ML SYRINGE SUBCUT (10:34)
--- NOTE | 2021-01-25 12:50 | PM.PNORT ---
Subjective Subjective Date of Service: 01/25/21 Interval history: POD 1 s/p ORIF Right patella Patient is having some pain after block wearing off denies cp, palpitations, SOb Physical Exam Vital Signs: Vital Signs: Last Vital Signs Temp 98.2 F 01/25/21 11:45 Pulse 61 01/25/21 11:45 Resp 20 01/25/21 11:45 BP 128/67 01/25/21 11:45 Pulse Ox 96 01/25/21 11:45 Body Mass Index 19.7 Const: General: cooperative, healthy appearing and no acute distress Resp: Effort & Inspection: normal respiratory effort and able to speak in complete sentences Cardio: Rate: regular rate Peripheral pulses: Peripheral pulses 2+ throughout GI: Palpation (GI): Soft to palpation Skin: General skin exam: no rashes or lesions noted Extrem: Other: Right knee brace and kate wrap intact. Sensation and pulses intact Procedures Date of Service Date of Service: 01/25/21 Progress Note: A&P Assessment and plan (1) Closed fracture of right patella: Status: Acute Assessment and Plan: Continue pain mgmnt Begin lovenox for dvt ppx begin PT for Rt ORIF patella-WBAT brace locked Dispo planning-Pending PT eval, pain mgmnt Fall Risk Details Current Medications: Current Medications Acetaminophen (Acetaminophen 325 Mg Tablet) 650 mg PO Q4H PRN PRN Reason: Pain, Mild (Pain Scale 1-3) Docusate Sodium (Docusate Sodium 100 Mg Capsule) 100 mg PO BID [facility] Last Admin: 01/25/21 08:00 Dose: Not Given Documented by: Enoxaparin Sodium (Enoxaparin Sodium 40 Mg/0.4 Ml Syringe) 40 mg SUBCUT Q24H [facility] Last Admin: 01/25/21 10:34 Dose: 40 mg Documented by: Morphine Sulfate (Morphine Sulfate 2 Mg/Ml Cartridge) 2 mg IVPUSH Q3H PRN; Protocol PRN Reason: pain Last Admin: 01/25/21 12:38 Dose: 2 mg Documented by: Ondansetron HCl (Ondansetron Hcl 4 Mg/2 Ml Vial) 4 mg IVPUSH Q8H PRN PRN Reason: Nausea and Vomiting Last Admin: 01/24/21 07:40 Dose: 4 mg Documented by: Oxycodone HCl (Oxycodone Hcl Immed Release 5 Mg Tablet) 5 mg PO Q4H PRN PRN Reason: Pain, Moderate (Pain Scale 4-6 Last Admin: 01/25/21 08:34 Dose: 5 mg Documented by: Sodium Chloride (0.9 % Sodium Chloride Flush 3 Ml Syringe) 3 ml IVFLUSH QSHIFT [facility] Last Admin: 01/25/21 08:00 Dose: 3 ml Documented by: Trazodone HCl (Trazodone Hcl 25 Mg Halftab) 25 mg PO BEDTIME PRN PRN Reason: Sleep Last Admin: 01/23/21 22:59 Dose: 25 mg Documented by: Time Spent With Patient Time: Total time spent is greater than 50% in coordination of care (as documented) at patient's floor/unit and/or counseling patient: Time with patient: less than 15 minutes Quality Stroke Does the patient have a stroke diagnosis?: No VTE Prior VTE?: No VTE Risk Level:: Surgical - high VTE Device Contraindication: N/A - Device Ordered VTE Drug Contraindication: Treatment Not Indicated
--- NOTE | 2021-01-25 13:25 | MHC.CM.PN ---
Addendum entered by Vero Ortiz 01/25/21 13:37: case discussed with orthopedic surgical p.a. patient is now willing to go to short termrehab but wants to stay in [place] she would like [facility] with [facility] for nsg and home p.t. Original Note: nurse memory care program director note electronic medical record reviewed along with case discussed on multiple discilplinary rounds. s/p orif of the right patella patient to be dischagred home with [facility] for home pt and nsg for home adrianna montano
[2021-01-25] MEDS: Docusate Sodium 100 MG CAPSULE PO (20:20)
[2021-01-26] MEDS: 0.9 % Sodium Chloride Flush 3 ML SYRINGE IVFLUSH ×4 (01:17→21:03)
[2021-01-26 04:00] VITALS: BP 117/70; PULSE 69; RESP 18; TEMP 37.4; O2SAT 94
[2021-01-26 05:41] LABS: MANUAL DIFF FLAG NO
[2021-01-26 05:49] LABS: Basophils Percent Auto 0.5 % (0-2); Eosinophils Absolute Auto 0.1 X10*3/uL (0.0-0.4); Eosinophils Percent Auto 1.4 % (0-4); Hematocrit 30.7 % (37.0-47.0); Hemoglobin 10.5 g/dl (12.0-16.0); Imm Gran Abs Auto 0.03 X10*3/uL (0.00-0.03); Imm Gran Pct Auto 0.4 % (0.0-0.4); Lymphocytes Absolute Auto 2.4 X10*3/uL (1.2-4.9); Lymphocytes Percent Auto 29.8 % (20-40); Mean Corpuscular HGB Conc 34.2 g/dl (31.0-35.0); Mean Corpuscular Hemoglobin 28.8 pg (27.0-33.0); Mean Corpuscular Volume 84.1 fL (80.0-98.0); Monocytes Absolute Auto 0.8 X10*3/uL (0.1-1.2); Monocytes Percent Auto 9.7 % (2-11); Neutrophils Absolute Auto 4.6 x10*3/uL (2.0-8.3); Neutrophils Percent Auto 58.2 % (45-73); Platelet Count 201 X10*3/uL (160-400); Red Blood Count 3.65 X10*6/uL (4.20-5.50); Red Cell Distribution Width 12.7 % (11.0-16.0)
[2021-01-26 06:03] LABS: Anion Gap 11 (12-20); Blood Urea Nitrogen 9 mg/dL (9-16); Calcium 8.7 mg/dL (8.4-10.2); Carbon Dioxide 25 mmol/L (22-29); Chloride 103 mmol/L (96-108); Creatinine Clr Calc Pharmacy 65.4; Estimated Glomerular Filt Rate > 60; Glucose Fasting 97 mg/dL (60-99); Potassium 4.1 mmol/L (3.3-5.1); Sodium 135 mmol/L (135-145)
[2021-01-26 07:37] VITALS: BP 113/66; PULSE 71; RESP 15; TEMP 36.9; O2SAT 94
[2021-01-26] MEDS: oxyCODONE HCl Immed Release 5 MG TABLET PO ×3 (08:26→21:02)
[2021-01-26] MEDS: Docusate Sodium 100 MG CAPSULE PO ×2 (08:26→21:03)
--- NOTE | 2021-01-26 08:53 | PC.NURSE ---
Skin assessment completed today. Patient has a surgical incision on right knee from ORIF of patella. No other skin issues noted at this time.
--- NOTE | 2021-01-26 10:47 | P.PNIM_ITS ---
Subjective Subjective Date of Service: 01/26/21 <Yoon Jain NP - Last Filed: 01/26/21 10:50> 01/30/21 <Candido Gomez MD - Last Filed: 01/30/21 16:45> Review of Systems Follow up consult ORIF right patella pain much better controlled today walking in the hallway with physical thera <Yoon Jain NP - Last Filed: 01/26/21 10:50> Physical Exam Vital Signs: Vital Signs: Last Vital Signs Temp 98.4 F 01/26/21 07:37 Pulse 71 01/26/21 07:37 Resp 15 01/26/21 07:37 BP 113/66 01/26/21 07:37 Pulse Ox 94 01/26/21 07:37 Body Mass Index 19.7 <Yoon Jain NP - Last Filed: 01/26/21 10:50> Appearing in no acute distress lung sounds are clear to auscultation heart regular rate rhythm, clear S1, S2 positive bowel sounds, abdomen is soft, nontender neuro patient is alert x3, no focal deficits MSK right knee surgical dressing intact, unable to visualize surgical wound <Yoon Jain NP - Last Filed: 01/26/21 10:50> Objective Data Active Medications Acetaminophen (Acetaminophen 325 Mg Tablet) 650 mg PO Q4H PRN PRN Reason: Pain, Mild (Pain Scale 1-3) Docusate Sodium (Docusate Sodium 100 Mg Capsule) 100 mg PO BID [facility] Last Admin: 01/26/21 08:26 Dose: 100 mg Documented by: ADILIA Enoxaparin Sodium (Enoxaparin Sodium 40 Mg/0.4 Ml Syringe) 40 mg SUBCUT Q24H [facility] Last Admin: 01/25/21 10:34 Dose: 40 mg Documented by: CM Morphine Sulfate (Morphine Sulfate 2 Mg/Ml Cartridge) 2 mg IVPUSH Q3H PRN; Protocol PRN Reason: pain Last Admin: 01/25/21 21:14 Dose: 2 mg Documented by: NEREYDA Ondansetron HCl (Ondansetron Hcl 4 Mg/2 Ml Vial) 4 mg IVPUSH Q8H PRN PRN Reason: Nausea and Vomiting Last Admin: 01/24/21 07:40 Dose: 4 mg Documented by: JEB Oxycodone HCl (Oxycodone Hcl Immed Release 5 Mg Tablet) 5 mg PO Q4H PRN PRN Reason: Pain, Moderate (Pain Scale 4-6 Last Admin: 01/26/21 08:26 Dose: 5 mg Documented by: ADILIA Sodium Chloride (0.9 % Sodium Chloride Flush 3 Ml Syringe) 3 ml IVFLUSH QSHIFT [facility] Last Admin: 01/26/21 08:15 Dose: 3 ml Documented by: ADILIA Trazodone HCl (Trazodone Hcl 25 Mg Halftab) 25 mg PO BEDTIME PRN PRN Reason: Sleep Last Admin: 01/23/21 22:59 Dose: 25 mg Documented by: STEVAN <Yoon Jain NP - Last Filed: 01/26/21 10:50> Labs CBC & Chem 7: : 01/27/21 05:26 01/27/21 05:26 <Yoon Jain NP - Last Filed: 01/26/21 10:50> Labs: Laboratory Results - last 24 hr 01/26/21 01/26/21 05:18 05:18 MCV 84.1 MCH 28.8 MCHC 34.2 RDW 12.7 Plt Count 201 MPV 10.0 Immature Gran % (Auto) 0.4 Neut % (Auto) 58.2 Lymph % (Auto) 29.8 [place] % (Auto) 9.7 Eos % (Auto) 1.4 Baso % (Auto) 0.5 Lymph # (Auto) 2.4 [place] # (Auto) 0.8 Eos # (Auto) 0.1 Baso # (Auto) 0.0 Abs Immat Gran (auto) 0.03 Absolute Neuts (auto) 4.6 Absolute Nucleated RBC 0.000 Nucleated RBC % (auto) 0.0 Anion Gap 11 L Estim Creat Clear Calc 65.4 Estimated GFR > 60 Fasting Glucose 97 Calcium 8.7 <Yoon Jain NP - Last Filed: 01/26/21 10:50> Assessment and Plan (1) Acute blood loss anemia: Status: Acute <Yoon Jain NP - Last Filed: 01/26/21 10:50> (2) Closed fracture of right patella: Status: Acute <Yoon Jain NP - Last Filed: 01/26/21 10:50> Assessment and Plan: This is a 70-year-old female with no known past medical history who presents to the emergency department after mechanical fall found to have a right patellar fracture Right patellar fracture Management per Orthopedic Service added morphine for pain management Low blood pressure reading. Better today post op follow BP closely Hyponatremia resolved Acute blood loss anemia r/t hemarthrosis in setting of patella fracture no indication for transfusion at this time follow CBC Pain better controlled, will sign off Attending Dr. Galarza <Yoon Jain NP - Last Filed: 01/26/21 10:50> This is a 70-year-old female with no known past medical history who presents to the emergency department after mechanical fall found to have a right patellar fracture Right patellar fracture Management per Orthopedic Service added morphine for pain management Low blood pressure reading. Better today post op follow BP closely Hyponatremia resolved Acute blood loss anemia r/t hemarthrosis in setting of patella fracture no indication for transfusion at this time follow CBC Pain better controlled, will sign off Attending Dr. gomez I saw and examined patient and discussed findings with midlevel provider and i agree with the above <Candido Gomez MD - Last Filed: 01/30/21 16:45> Quality Stroke Does the patient have a stroke diagnosis?: No <Yoon Jain NP - Last Filed: 01/26/21 10:50> VTE Prior VTE?: No <Yoon Jain NP - Last Filed: 01/26/21 10:50> VTE Risk Level:: Surgical - high <Yoon Jain NP - Last Filed: 01/26/21 10:50> VTE Device Contraindication: N/A - Device Ordered <Yoon Jain NP - Last Filed: 01/26/21 10:50> VTE Drug Contraindication: Treatment Not Indicated <Yoon Jain NP - Last Filed: 01/26/21 10:50>
--- NOTE | 2021-01-26 10:53 | P.PNOP_ITS ---
Subjective Subjective Date of Service: 01/26/21 Interval history: POD2 S post right patella ORIF with Dr. Mota. Patient is resting comfortably in bed. Pain is well managed. She has been working with physical therapy. Denies any chest pain or palpitations or shortness of breath. No additional complaints. Physical Exam Vital Signs: Vital Signs: Last Vital Signs Temp 98.4 F 01/26/21 07:37 Pulse 71 01/26/21 07:37 Resp 15 01/26/21 07:37 BP 113/66 01/26/21 07:37 Pulse Ox 94 01/26/21 07:37 Body Mass Index 19.7 Const: General: cooperative, healthy appearing and no acute distress Resp: Effort & Inspection: normal respiratory effort and able to speak in complete sentences Cardio: Rate: regular rate Peripheral pulses: Peripheral pulses 2+ throughout GI: Palpation (GI): Soft to palpation Skin: Lesions: no lesions Rashes: no rashes Extrem: Other: Right knee dressings are clean dry and intact. Artur bandage intact. Brace is locked in extension. Patient is able to dorsiflex and plantar flex. Sensation is intact. Pedal pulse intact. Procedures Date of Service Date of Service: 01/26/21 Progress Note: A&P Assessment and plan (1) Closed fracture of right patella: Status: Acute Assessment and Plan: Continue pain mgmnt Continue Lovenox for dvt ppx Continue PT for right patella ORIF may weight bear as tolerated with brace locked in extension Dispo planning-PT, pain mgmnt, had a lengthy conversation with the patient. She will remain in the hospital overnight and plan to discharge home tomorrow with services. Fall Risk Details Current Medications: Current Medications Acetaminophen (Acetaminophen 325 Mg Tablet) 650 mg PO Q4H PRN PRN Reason: Pain, Mild (Pain Scale 1-3) Docusate Sodium (Docusate Sodium 100 Mg Capsule) 100 mg PO BID [facility] Last Admin: 01/26/21 08:26 Dose: 100 mg Documented by: Enoxaparin Sodium (Enoxaparin Sodium 40 Mg/0.4 Ml Syringe) 40 mg SUBCUT Q24H [facility] Last Admin: 01/25/21 10:34 Dose: 40 mg Documented by: Morphine Sulfate (Morphine Sulfate 2 Mg/Ml Cartridge) 2 mg IVPUSH Q3H PRN; Protocol PRN Reason: pain Last Admin: 01/25/21 21:14 Dose: 2 mg Documented by: Ondansetron HCl (Ondansetron Hcl 4 Mg/2 Ml Vial) 4 mg IVPUSH Q8H PRN PRN Reason: Nausea and Vomiting Last Admin: 01/24/21 07:40 Dose: 4 mg Documented by: Oxycodone HCl (Oxycodone Hcl Immed Release 5 Mg Tablet) 5 mg PO Q4H PRN PRN Reason: Pain, Moderate (Pain Scale 4-6 Last Admin: 01/26/21 08:26 Dose: 5 mg Documented by: Sodium Chloride (0.9 % Sodium Chloride Flush 3 Ml Syringe) 3 ml IVFLUSH QSHIFT [facility] Last Admin: 01/26/21 08:15 Dose: 3 ml Documented by: Trazodone HCl (Trazodone Hcl 25 Mg Halftab) 25 mg PO BEDTIME PRN PRN Reason: Sleep Last Admin: 01/23/21 22:59 Dose: 25 mg Documented by: Time Spent With Patient Time: Total time spent is greater than 50% in coordination of care (as documented) at patient's floor/unit and/or counseling patient: Time with patient: less than 15 minutes Quality Stroke Does the patient have a stroke diagnosis?: No VTE Prior VTE?: No VTE Risk Level:: Surgical - high VTE Device Contraindication: N/A - Device Ordered VTE Drug Contraindication: Treatment Not Indicated
[2021-01-26] MEDS: Enoxaparin Sodium 40 MG/0.4 ML SYRINGE SUBCUT (11:01)
[2021-01-26] MEDS: Acetaminophen 325 MG TABLET 650 MG PO (11:08)
[2021-01-26 11:28] VITALS: BP 109/65; PULSE 71; RESP 16; TEMP 36.9; O2SAT 94
--- NOTE | 2021-01-26 15:29 | MHC.CM.PN ---
nurse connor manager contact ntoe electronic medical record reviewe met with patient today informed her that she was clinicLLY ACCEPTED AT [facility] (HER ONLY CHOICE), she reported that after discussion with her surgeron and physical and occupational thearpist THAR=T SHE NO LONGER WANTS TO GO TO REHAB SHE WANTS TO GO HOME, PATIENT HAD BEEN FOLLOWED BY THE [facility] WITH THIS ADMISSION , SHE WILL BE GOING HOME ON [place] LOVENOX WHICH IS NEW, (STAFF NURSE WILL PROVIDE TEACHING AND PATIENT TO SELF ADMINISTER TOMORROW . (I WAS INFORMED BY THE [facility] THAT THEY COULD NOT ACCEPT PATIENT SECONDARY TO STAFFING AND WOULD NOT BE ABLE TO SEE HER UNTIL SOME TIME NEXT WEEK . DISCHARGE PLAN HOME - REFERRALS WENT TO [facility] ,[facility], [facility], [facility] [place], [facility]ell [facility] and frances looking for nsg and home pt to start monday patient has obtained a walker from [facility] and it will be delivbered to her tomorrow her nmedications have already been sent to her pharmacy career professional to follow mupm with referrals
[2021-01-26 15:44] VITALS: BP 128/68; PULSE 66; RESP 16; TEMP 36.8; O2SAT 96
[2021-01-26 19:45] VITALS: BP 110/77; PULSE 74; RESP 18; TEMP 36.8; O2SAT 94
[2021-01-26 23:31] VITALS: BP 116/60; PULSE 70; RESP 18; TEMP 36.3; O2SAT 95
[2021-01-27 04:00] VITALS: BP 134/67; PULSE 87; RESP 18; TEMP 37.1; O2SAT 97
[2021-01-27 05:46] LABS: MANUAL DIFF FLAG NO
[2021-01-27 05:50] LABS: Basophils Percent Auto 0.5 % (0-2); Eosinophils Absolute Auto 0.2 X10*3/uL (0.0-0.4); Eosinophils Percent Auto 2.4 % (0-4); Hematocrit 31.8 % (37.0-47.0); Hemoglobin 10.7 g/dl (12.0-16.0); Imm Gran Abs Auto 0.02 X10*3/uL (0.00-0.03); Imm Gran Pct Auto 0.3 % (0.0-0.4); Lymphocytes Absolute Auto 1.9 X10*3/uL (1.2-4.9); Lymphocytes Percent Auto 28.5 % (20-40); Mean Corpuscular HGB Conc 33.6 g/dl (31.0-35.0); Mean Corpuscular Hemoglobin 28.4 pg (27.0-33.0); Mean Corpuscular Volume 84.4 fL (80.0-98.0); Mean Platelet Volume 9.9 fL (9.4-12.3); Monocytes Absolute Auto 0.5 X10*3/uL (0.1-1.2); Monocytes Percent Auto 7.2 % (2-11); Neutrophils Percent Auto 61.1 % (45-73); Platelet Count 204 X10*3/uL (160-400); Red Blood Count 3.77 X10*6/uL (4.20-5.50); Red Cell Distribution Width 12.6 % (11.0-16.0); White Blood Count 6.6 X10*3/uL (4.8-10.8)
[2021-01-27 06:09] LABS: Anion Gap 13 (12-20); Blood Urea Nitrogen 8 mg/dL (9-16); Calcium 9.2 mg/dL (8.4-10.2); Carbon Dioxide 28 mmol/L (22-29); Chloride 103 mmol/L (96-108); Creatinine Clr Calc Pharmacy 58.7; Estimated Glomerular Filt Rate > 60; Glucose Fasting 98 mg/dL (60-99); Potassium 4.7 mmol/L (3.3-5.1); Sodium 139 mmol/L (135-145)
--- NOTE | 2021-01-27 07:09 | PM.DS ---
DS: Providers Provider Date of Service: 01/27/21 Date of admission: 01/23/21 11:47 Primary care physician: Marii Caro MD Consults: 01/23/21 11:47 Consult to Hospitalist Routine Consulting Provider: Hospitalist Reason For Exam: pre op patella fracture DS: Diagnosis Discharge Diagnosis (1) Closed fracture of right patella: Status: Acute DS: Summary Hospital Course Hospital Course: The patient underwent a successful right knee patella ORIF, they were transferred to PACU and then to the floor to recover. During their stay, their vitals were stable, afebrile at 98.7. Labs were unremarkable, H/H 10.7/31.8. POD 1 they were started on Lovenox for DVT ppx, they also received Physical Therapy services twice a day. Prior to discharge, their dressing was changed, incision clean dry and intact, new Aquacel dressing applied and the plan was to be discharged home with VNA services. Time Spent with Patient Time attestation: Total time spent providing and/or coordinating discharge services: Discharge coordination time: Less than 30 minutes Quality: Stroke Does the patient have a stroke diagnosis?: No Physical Exam Vital Signs: Vital Signs: Last Vital Signs Temp 98.7 F 01/27/21 04:00 Pulse 87 01/27/21 04:00 Resp 18 01/27/21 04:00 BP 134/67 01/27/21 04:00 Pulse Ox 97 01/27/21 04:00 Body Mass Index 19.7 Const: General: cooperative, healthy appearing and no acute distress Resp: Effort & Inspection: normal respiratory effort and able to speak in complete sentences Cardio: Rate: regular rate Peripheral pulses: Peripheral pulses 2+ throughout GI: Palpation (GI): Soft to palpation Skin: Lesions: no lesions Rashes: no rashes Extrem: Other: Right knee incision is clean, dry, and intact. randy intact. NVI. DS: Data Data Completed and Pending Labs on day of discharge: Laboratory Results - last 24 hr 01/27/21 01/27/21 05:26 05:26 WBC 6.6 RBC 3.77 L Hgb 10.7 L Hct 31.8 L MCV 84.4 MCH 28.4 MCHC 33.6 RDW 12.6 Plt Count 204 MPV 9.9 Immature Gran % (Auto) 0.3 Neut % (Auto) 61.1 Lymph % (Auto) 28.5 [place] % (Auto) 7.2 Eos % (Auto) 2.4 Baso % (Auto) 0.5 Lymph # (Auto) 1.9 [place] # (Auto) 0.5 Eos # (Auto) 0.2 Baso # (Auto) 0.0 Abs Immat Gran (auto) 0.02 Absolute Neuts (auto) 4.0 Absolute Nucleated RBC 0.000 Nucleated RBC % (auto) 0.0 Sodium 139 Potassium 4.7 Chloride 103 Carbon Dioxide 28 Anion Gap 13 BUN 8 L Creatinine 0.68 Estim Creat Clear Calc 58.7 Estimated GFR > 60 Fasting Glucose 98 Calcium 9.2 Discharge Plan Discharge Patient Disposition: Home Health Service Discharge Diagnosis: Status post right patella ORIF Referrals: Mindy Wayne PA-C [Physician Digital Sales Executive] - 2 Weeks (2 week follow-up with orthopedics at the outpatient office Office will call to schedule appointment date and time.) Discharge Medications: New acetaminophen 325 mg Tablet 650 mg PO Q4H PRN (Reason: Pain, Mild (Pain Scale 1-3)) 30 Days Qty: 240 RF: 0 enoxaparin 40 mg/0.4 mL Syringe 40 mg subcut Q24H 42 Days Qty: 16.8 RF: 0 docusate sodium 100 mg Capsule 100 mg PO BID 30 Days Qty: 60 RF: 0 oxycodone 5 mg Tablet 5 mg PO Q4H PRN (Reason: Pain, Moderate (Pain Scale 4-6) 7 Days Qty: 42 RF: 0 (DME) walker Misc See Rx Instructions .Route Qty: 1 RF: 0 Discharge Orders: Discharge Order (Routine); Ordered 01/27/21 Ordered By: Mindy Wayne Diet: advance to usual diet Activity on Discharge: Use cane or walker Stand Alone Forms: Patient Portal Discharge page Care Plan Goals: Restore function to right knee Health Concerns: None Plan of Treatment: WBAT with brace locked in extension and use of a walker Dressing changes as needed No tub bath or shower-Keep dressing clean, dry and intact Follow up with orthopedics in 2 weeks Assessment: Stable for discharge
[2021-01-27 07:44] VITALS: BP 130/67; PULSE 63; RESP 16; TEMP 36.9; O2SAT 96
[2021-01-27] MEDS: Enoxaparin Sodium 40 MG/0.4 ML SYRINGE SUBCUT (08:29)
[2021-01-27] MEDS: oxyCODONE HCl Immed Release 5 MG TABLET PO ×2 (08:29→13:28)
[2021-01-27] MEDS: Docusate Sodium 100 MG CAPSULE PO (08:36)
[2021-01-27] MEDS: 0.9 % Sodium Chloride Flush 3 ML SYRINGE IVFLUSH (08:37)
[2021-01-27] MEDS: Acetaminophen 325 MG TABLET 650 MG PO (13:28)
--- NOTE | 2021-01-27 13:41 | MHC.CM.PN ---
03/29/20 13:10 - Case Mgmt Progress Note by Vero Ortiz [facility] Num: [id number] : 02/22/1921 Patient Age: 89 nurse disease case manager rn note- barrier to discharge is that the initial vna following patient could not go out to see her for nsg/home pt services iuntil next monday referrals to - na no availability first choice (case discussed on multiple disciplinary rounds vna decline sec to no staff availability ([facility] no availability, overlook vna) no contract= [facility], [facility] awaiting response ([facility], [facility], [facility], [facility] home care, [facility], [facility]) discharge plan home with family (still no response from other agencies ) received call from [facility] , they will accept patient with the [place] [facility] for nursing to start on for sc lovenox reinforcement teaching and she will have physical thearpy to start over the weekend (case discussed with case director talent management) transportation - family medicare imm m updated all paperwork completed patient has secured a walker
--- NOTE | 2021-02-08 14:04 | W.PM.OPN ---
Operative Note Operative Note Date of Service: 01/24/21 Narrative: Pre-op diagnosis: right patella fracture Post-op diagnosis: same Procedure: ORIF right patella Implants: 30 mm 3.5 cannulated partially threaded screw-synthes x2 cerclage wire .054 x2 Surgeon: Lewis Mota MD Anesthesia: GETA and regional Was an Sanitary Plumber used for this Procedure?: Yes Sanitary Plumber: Richard Haque Estimated blood loss (mL): 50 IV fluids (mL): 1,000 Pathology: none sent Condition: stable Disposition: PACU Procedure in detail: Patient was brought to the operating room placed supine on the operative table and her right lower extremity was prepped and draped in standard sterile fashion. Time-out was called to identify proper site proper procedure proper surgeon IV antibiotics per weight were administered. I began by making a standard midline incision over the patella. The patellar retinaculum was dissected and the intra-articular patella fracture was identified. The fracture was moderately comminuted and was mostly a patellar pole fracture but did involve the articular surface and was significantly displaced. I began by cleaning up the fracture fragments with a combination of curette and irrigation. I then used to tell clamp to reduce the fracture and placed a threaded K-wire across the fracture from proximal to distal and parallel to the joint surface. Biplanar fluoroscopy was used to confirm the fracture reduction and the location of the hardware and when I was happy with this I over drilled the wires and placed 2 partially-threaded 3.5 cannulated screws. I then placed 218 gauge cerclage wire through the screws and tied this over the top of patella and crossing fashion. The metal was buried in the soft tissues and biplanar fluoroscopy was used to confirm the fracture reduction and hardware position. Once I was satisfied with these I took the knee through full range of motion was very satisfied with the stability. Wound was closed with absorbable suture and randy in the patient was placed into a locked hinged knee brace and sterile dressings. She was extubated brought to recovery room stable condition there were no known complications.
== END 2021-01-27 15:38 | disposition home health service (06) | DRG 516 ==
LOC: HO.ED 11:53 → HO.EDOVER 12:02 → HO.S3 16:59
PROVIDERS: Nurse Practitioner Family; Orthopaedic Surgery; Admitting Provider Physician Assistant; Emergency Provider Emergency Medicine Emergency Medical Services; PCP Family Medicine; Visit Provider Physician Assistant
PROC: 0QSD04Z Reposition Right Patella with Internal Fixation Device, Open Approach (ICD-10-PCS; CPT 27524; principal; 2021-01-24 09:00)
DX: S82.001A Unspecified fracture of right patella, initial encounter for closed fracture (principal); D62 Acute posthemorrhagic anemia; E87.1 Hypo-osmolality and hyponatremia; I95.81 Postprocedural hypotension; W00.0XXA Fall on same level due to ice and snow, initial encounter; Y93.9 Activity, unspecified; Z20.822 Contact with and (suspected) exposure to COVID-19; Z79.899 Other long term (current) drug therapy
CPT/HCPCS: 36415; 73560; 80048; 85025; 85610; 85730; 86850; 86900; 86901; 87635; 93005; 96374; 96375; 97116; 97162; 97166; 97530; 97535; 99284; 99285; C1713; J0690; J1100; J1650; J2250; J2270; J2405; J2795; J3010

== ENCOUNTER 2021-02-12 12:58 | Outpatient (REF) | payer MEDICARE, SELFPAY ==
--- NOTE | ~2021-02-12 | XR_ITS ---
EXAMINATION: XR KNEE, RIGHT CLINICAL INFORMATION: Pain. COMPARISON: None TECHNIQUE: Two views of the right knee. FINDINGS: Hardware bridging fracture of patella. Grossly anatomic position. Surgical randy over the site. XR/XR knee RT 2V IMPRESSION: Good visual result status post hardware for fractured patella.
== END 2021-02-12 12:59 | disposition home or self-care (01) ==
LOC: HO.HOSX 12:58
PROVIDERS: Visit Provider Physician Assistant
DX: M25.561 Pain in right knee (principal); S82.001A Unspecified fracture of right patella, initial encounter for closed fracture; W01.0XXA Fall on same level from slipping, tripping and stumbling without subsequent striking against object, initial encounter; Y93.01 Activity, walking, marching and hiking; Y92.9 Unspecified place or not applicable; Y99.8 Other external cause status; D62 Acute posthemorrhagic anemia; E87.1 Hypo-osmolality and hyponatremia; R03.1 Nonspecific low blood-pressure reading
CPT/HCPCS: 73560; 99212

== ENCOUNTER 2021-03-09 12:28 | Outpatient (REF) | payer MEDICARE, SELFPAY | END 2021-03-09 12:29 | disposition home or self-care (01) | LOC: HO.HMGCLDS 12:28 | PROVIDERS: Visit Provider Internal Medicine | DX: Z20.822 Contact with and (suspected) exposure to COVID-19 (principal) | CPT/HCPCS: C9803; U0003; U0005 ==

== ENCOUNTER 2021-03-12 08:24 | Outpatient (REF) | payer MEDICARE, SELFPAY ==
--- NOTE | ~2021-03-12 | XR_ITS ---
EXAMINATION: XR KNEE, RIGHT CLINICAL INFORMATION: Knee pain COMPARISON: Right knee radiographs on 02/12/2021 TECHNIQUE: Four views of the right knee. FINDINGS: Prior fixation of the patella. No fracture or joint effusion. Alignment is anatomic. Joint spaces are well maintained. No abnormal soft tissue calcification. XR/XR knee RT 2V IMPRESSION: No acute abnormality.
== END 2021-03-12 08:25 | disposition home or self-care (01) ==
LOC: HO.HOSX 08:24
PROVIDERS: Visit Provider Physician Assistant
DX: S82.001D Unspecified fracture of right patella, subsequent encounter for closed fracture with routine healing (principal)
CPT/HCPCS: 73560; 99212

== ENCOUNTER 2021-04-15 06:36 | Outpatient (REF) | payer MEDICARE, SELFPAY ==
--- NOTE | ~2021-04-15 | XR_ITS ---
EXAMINATION: XR KNEE, RIGHT CLINICAL INFORMATION: Pain COMPARISON: Right knee x-rays 03/12/2021 TECHNIQUE: Two views of the right knee. FINDINGS: Stable postsurgical changes of the patella. Fracture line still visualized. A small suprapatellar joint effusion is suspected. Joint spaces are well-maintained. XR/XR knee RT 2V IMPRESSION: Stable postsurgical changes of the patella.
== END 2021-04-15 06:37 | disposition home or self-care (01) ==
LOC: HO.HOSX 06:36
PROVIDERS: Visit Provider Physician Assistant
DX: S82.001D Unspecified fracture of right patella, subsequent encounter for closed fracture with routine healing (principal)
CPT/HCPCS: 73560; 99212

== ENCOUNTER 2021-05-17 14:00 | Outpatient (RCR) | payer MEDICARE, SELFPAY ==
--- NOTE | 2021-03-02 20:55 | MHC.PT.EP ---
[facility] [place] Office [place] Office [place] Office [address] [phone] F: [phone] F: [phone] F: [phone] F: [phone] Physical Therapy Plan of Care Date of Evaluation: Date of Surgery: 01/24/21 Diagnosis: Fracture of L patella with ORIF Assessment: Frequency and Duration: The patient will be seen 2 x / wk x 8 wks. Short Term Goals: Initiate HEP. WNL ROM achieved. Order Desk Clerk Goals: Symmetrical gait w/o SPC achieved. Reciprocal stair negotiation achieved. Pt will be able to walk 2 blocks with at most a little bit of difficulty. Treatment Plan: Modalities to reduce pain, spasms and effusion. Manual therapy to restore motion and function. Therapeutic exercise to improve strength and flexibility. Neuromuscular re-education for posture and balance. Therapeutic activities to return to functional activities of daily living. Electronically signed by: Dangelo Leon PT. Please sign and return to therapist. Thank you for your referral.
--- NOTE | 2021-05-17 17:01 | MHC.PT.DC ---
[facility] [place] Office [place] Office [place] Office [address] [facility] [phone] F: [phone] F: [phone] F: [phone] F: [phone] Physical Therapy Discharge Report Diagnosis: Fracture of L patella with ORIF Date of Surgery: 01/24/21 Date of Evaluation: 03/02/21 Date of Discharge: 05/17/21 Treatments to Date: 17 Cancellations to Date: No Shows to Date: Discharge Status: Achieved Goals Improved Function Independent with HEP Discharge Summary: Karina has been an active and ideal participant in her therapy in and out of the clinic, she has met all of therapeutic goals and is in agreement with DC at this time. ROM 0-142. Electronically signed by: Dangelo Leon PT. Please sign and return to therapist. Thank you for your referral.
== END 2021-05-17 17:01 | disposition home or self-care (01) ==
LOC: HO.PTCHIC 14:00
PROVIDERS: PCP Family Medicine; Visit Provider Physician Assistant
DX: S82.001D Unspecified fracture of right patella, subsequent encounter for closed fracture with routine healing (principal)
CPT/HCPCS: 97110; 97116; 97140; 97150; 97161; 97530

== ENCOUNTER 2021-07-08 06:59 | Outpatient (REF) | payer MEDICARE, SELFPAY ==
--- NOTE | ~2021-07-08 | XR_ITS ---
EXAMINATION: XR KNEE, RIGHT XR KNEE STANDING, RIGHT AND LEFT CLINICAL INFORMATION: Pain. COMPARISON: 04/15/2021 and studies dating back to 01/23/2021. TECHNIQUE: AP standing views of both knees and sunrise and lateral views of the right knee. FINDINGS: Hardware again noted, intact from previous surgery for patellar fracture. No acute fracture identified. Joint spaces are maintained. No significant knee effusion is noted. 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 XR/XR knee standing BI IMPRESSION: No significant acute bony abnormality identified.
--- NOTE | ~2021-07-08 | XR_ITS ---
EXAMINATION: XR KNEE, RIGHT XR KNEE STANDING, RIGHT AND LEFT CLINICAL INFORMATION: Pain. COMPARISON: 04/15/2021 and studies dating back to 01/23/2021. TECHNIQUE: AP standing views of both knees and sunrise and lateral views of the right knee. FINDINGS: Hardware again noted, intact from previous surgery for patellar fracture. No acute fracture identified. Joint spaces are maintained. No significant knee effusion is noted. 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 XR/XR knee RT 2V IMPRESSION: No significant acute bony abnormality identified.
== END 2021-07-08 07:00 | disposition home or self-care (01) ==
LOC: HO.HOSX 06:59
PROVIDERS: Visit Provider Orthopaedic Surgery
DX: M25.561 Pain in right knee (principal); Z98.890 Other specified postprocedural states; Z87.81 Personal history of (healed) traumatic fracture
CPT/HCPCS: 73560; 73565; 99212

== ENCOUNTER 2022-03-21 13:28 | Outpatient (REF) | payer MEDICARE, SELFPAY ==
--- NOTE | ~2022-03-21 | XR_ITS ---
EXAMINATION: XR KNEE, RIGHT XR KNEE AP STANDING CLINICAL INFORMATION: Pain. COMPARISON: Radiographs dated 07/08/2021. TECHNIQUE: Lateral and axial views of the right knee are submitted. AP bilateral standing view of the knees was obtained. FINDINGS: Bones and soft tissues are normal. No fracture or joint effusion. Alignment is anatomic, without varus or valgus configuration seen bilaterally. Bilateral joint spaces are well maintained. No abnormal soft tissue calcification. Orthopedic hardware is again applied to the right patella. XR/XR knee RT 2V IMPRESSION: Unremarkable radiographs of the bilateral knees.
--- NOTE | ~2022-03-21 | XR_ITS ---
EXAMINATION: XR KNEE, RIGHT XR KNEE AP STANDING CLINICAL INFORMATION: Pain. COMPARISON: Radiographs dated 07/08/2021. TECHNIQUE: Lateral and axial views of the right knee are submitted. AP bilateral standing view of the knees was obtained. FINDINGS: Bones and soft tissues are normal. No fracture or joint effusion. Alignment is anatomic, without varus or valgus configuration seen bilaterally. Bilateral joint spaces are well maintained. No abnormal soft tissue calcification. Orthopedic hardware is again applied to the right patella. XR/XR knee standing BI IMPRESSION: Unremarkable radiographs of the bilateral knees.
== END 2022-03-21 13:29 | disposition home or self-care (01) ==
LOC: HO.HOSX 13:28
PROVIDERS: Visit Provider Orthopaedic Surgery
DX: M25.561 Pain in right knee (principal); Z98.890 Other specified postprocedural states; Z87.81 Personal history of (healed) traumatic fracture; Z96.9 Presence of functional implant, unspecified
CPT/HCPCS: 73560; 73565; 99212

== ENCOUNTER 2022-04-13 10:18 | Day surgery (SDC) | payer MEDICARE, SELFPAY ==
[2022-04-13] VITALS (9 sets, daily range): BP systolic 104–136; BP diastolic 59–74; PULSE 54–71; RESP 14–17; TEMP 36.1–36.3; O2SAT 97–100; BMI 19.3
--- NOTE | ~2022-04-13 | FL_ITS ---
EXAMINATION: XR FLUOROSCOPY WITH IMAGES CLINICAL INFORMATION: Right patellar hardware. COMPARISON: Right knee radiographs dated 03/21/2022. TECHNIQUE: Fluoroscopy Supervised By: Dr. Mota. Fluoroscopy Time: 0.1 minutes. Cumulative Dose: 0.237 mGy. DAP: 0.57847 Gycm2. Images: 2. FL/FL guidance in OR FINDINGS/IMPRESSION: Final images show 2 cortical screws in the patella without associated abnormality. There is good anatomic alignment. Please refer to the procedure report for detailed findings.
--- NOTE | 2022-04-13 08:25 | HO.ANESPROP2 ---
HPI - Anesthesia Eval Consult details Narrative: Rermoval of patella hardware PMFSH Active Problems Active Problems: All Active Problems (Updated 04/06/22 @ 15:03 by Vero Green RN) Closed fracture of right patella (Acute) Fracture of patella with routine healing (Acute) Status post open reduction and internal fixation (ORIF) of fracture (Acute) Retained orthopedic hardware (Acute) Past Medical History Medical History (Updated 04/06/22 @ 15:03 by Vero Green RN) Acute blood loss anemia Hyponatremia Family History Family History Brother Sarcoidosis Family history of problems with anesthesia: No Surgical History Surgical History (Updated 04/06/22 @ 14:49 by Vero Green RN) H/O right wrist surgery Hx of right knee surgery History of Problems with Anesthesia: No Social History Social History (Updated 03/12/21 @ 13:18 by Morales Parks) Household Members: Family Housing: Apartment Do you presently have visiting nurse or other home services: No Alcohol intake: current Alcohol intake frequency: holidays/special occasions only Patient Tobacco Use Status: Never used Tobacco service: No Current occupational status: employed Current occupation: rt handed Meds Allergies Allergy/AdvReac Type Severity Reaction Status Date / Time No Known Allergies Allergy Verified 03/21/22 14:03 Home Medications Medication Instructions Recorded Confirmed Last Taken Type albuterol sulfate 90 mcg/actuation 2 puff inhalation Q4-6H PRN 04/06/22 04/06/22 Unknown History aerosol inhaler Wheezing denosumab 60 mg/mL subcutaneous mg subcut 04/06/22 Unknown History syringe (Prolia) estradiol 0.01% (0.1 mg/gram) vaginal 04/06/22 Unknown History vaginal cream zolpidem 10 mg tablet 1 tab PO BEDTIME 04/06/22 04/06/22 Unknown History Exam Exam Date and Time: April 13, 2022824 Airway Mallampati Class: II TM Dist: >3cm Neck ROM: Full Heart: rrr Lungs: cta Assessment and Plan Final Anesthetic Review Family History of Problems with Anesthesia: No History of Problems with Anesthesia: No ASA Class: II Final Preanesthetic Review: No Changes in Pt Med Stat, Meds/Allgs Chart Reviewed, Consent Obtained/Reviewed and Anes Risks/Benef Reviewed Patient Risk: Low Procedure Risk: Low Anesthetic Plan Anesthetic Plan: GA, Regional Block and Agree w/ Assess. and Plan Disposition: Standard PACU
--- NOTE | 2022-04-13 10:51 | HO.ANESPROP2 ---
HPI - Anesthesia Eval Consult details Narrative: 71 F for right knee hardware removal PMFSH Active Problems Active Problems: All Active Problems (Updated 04/06/22 @ 15:03 by Vero Green RN) Closed fracture of right patella (Acute) Fracture of patella with routine healing (Acute) Status post open reduction and internal fixation (ORIF) of fracture (Acute) Retained orthopedic hardware (Acute) Past Medical History Medical History (Updated 04/13/22 @ 10:54 by Reanna Bernal, RN) Acute blood loss anemia Hyponatremia Osteoporosis Functional capacity: independent ambulation Family History Family History Brother Sarcoidosis Family history of problems with anesthesia: No Surgical History Surgical History (Updated 04/13/22 @ 10:29 by Reanna Bernal RN) H/O right wrist surgery Hx of colonoscopy Hx of right knee surgery History of Problems with Anesthesia: Yes (PONV) Social History Social History (Updated 03/12/21 @ 13:18 by Morales Parks) Household Members: Family Housing: Apartment Do you presently have visiting nurse or other home services: No Alcohol intake: current Alcohol intake frequency: holidays/special occasions only Patient Tobacco Use Status: Never used Tobacco Use of substances other than those prescribed or required for medical reasons: No Are you DNR?: No Advance Directives: No Advance Directives Information Provided: Yes service: No Current occupational status: employed Current occupation: rt handed Meds Allergies Allergy/AdvReac Type Severity Reaction Status Date / Time No Known Allergies Allergy Verified 04/13/22 10:29 Active Medications: Current Medications Lactated Ringer's (Lr) 1,000 mls @ 50 mls/hr IVCONT .Q20H [facility] Home Medications Medication Instructions Recorded Confirmed Last Taken Type denosumab 60 mg/mL subcutaneous 60 mg subcut [id number] 04/06/22 04/13/22 Unknown History syringe (Prolia) estradiol 0.01% (0.1 mg/gram) vaginal 04/06/22 Unknown History vaginal cream zolpidem 10 mg tablet 1 tab PO BEDTIME 04/06/22 04/06/22 Unknown History Tracy 3 Fish Oil 04/13/22 Unknown History Vitamin D3 04/13/22 Unknown History calcium 04/13/22 04/13/22 Unknown History multivitamin 1 tab PO DAILY 04/13/22 04/13/22 Unknown History Exam Exam Date and Time: April 13, 2022 1051 Height,Weight and Vital Signs: Height 5 ft 2 in Weight 48.081 kg Last Vital Signs Temp 97.4 F 04/13/22 10:44 Pulse 56 04/13/22 10:44 Resp 16 04/13/22 10:44 BP 136/74 04/13/22 10:44 Pulse Ox 98 04/13/22 10:44 O2 Del Method 04/13/22 10:44 Airway Mallampati Class: III TM Dist: >3cm Neck ROM: Full Loose/Missing/Broken Teeth: Yes Heart: S1,S2 Lungs: b/l breath sounds Assessment and Plan Assessment Anesthesia Assessment: Anesthesia Plan Discussed and Chart Reviewed Final Anesthetic Review Family History of Problems with Anesthesia: No History of Problems with Anesthesia: Yes (PONV) NPO: Yes ASA Class: II Final Preanesthetic Review: Meds/Allgs Chart Reviewed, Consent Obtained/Reviewed and Anes Risks/Benef Reviewed Patient Risk: Intermediate Procedure Risk: Intermediate Anesthetic Plan Anesthetic Plan: GA Disposition: Standard PACU
[2022-04-13] MEDS: Lactated Ringers 1,000 ML 50 ML IVCONT (10:52)
--- NOTE | 2022-04-13 11:48 | MHC.SHP ---
Pre-Procedural Eval Section A Date of Service: 04/13/22 The patient is an INPATIENT: No Changes since office visit: No Cold of Flu in the past 2 weeks, No New Medical Problems, No Changes in Medication and No Patient answered all questions The History & Physical has been completed within 30 days and I have reviewed it.: Yes Section B Chief Complaint: Other specified postprocedural states Allergies: Allergies Allergy/AdvReac Type Severity Reaction Status Date / Time No Known Allergies Allergy Verified 04/13/22 10:29 Plan I have reviewed the history and physical and performed a pertinent physical examination on my patient. No changes have occurred unless specified. Time Spent With Patient Time: Total time managing care of this patient today ____ minutes.
--- NOTE | 2022-04-13 12:31 | P.BOP_ITS ---
Brief Operative Note Date of Service: 04/13/22 Pre-op diagnosis: Retained orthopaedic hardware right knee Post-op diagnosis: same Procedure: Removal of hardware right knee Surgeon: Lewis Mota MD Anesthesia: GETA and local Was an Bookkeepers Supervisor used for this Procedure?: Yes Bookkeepers Supervisor: Mindy Wayne Estimated blood loss (mL): 0 Tourniquet time (min): 20 Pathology: none sent Condition: stable Disposition: PACU
--- NOTE | 2022-04-15 13:51 | W.PM.OPN ---
Operative Note Operative Note Date of Service: 04/13/22 Narrative: Date of Service: 04/13/22 Pre-op diagnosis: Retained orthopaedic hardware right knee Post-op diagnosis: same Procedure: Removal of hardware right knee Surgeon: Lewis Mota MD Anesthesia: GETA and local Was an Life Educator used for this Procedure?: Yes Life Educator: Mindy Wayne Estimated blood loss (mL): 0 Tourniquet time (min): 20 Pathology: none sent Condition: stable Disposition: PACU Patient was brought to the operating room and placed supine on the surgical table. She was prepped and draped in standard sterile fashion and a time out was called to identify proper site, proper procedure and IV antibiotics per weight were administered. I made a ~3 cm incision over the prior incision. Dissection was taken down to the knotted wires. These were clipped and then pulled and removed. Biplanar fluoro confirmed wire removal and no other bony changes. Copious irrigation and layered closure was performed. Patient was extubated and brought to the recovery room in stable condition. there were no known complications.
== END 2022-04-13 15:43 | disposition home or self-care (01) ==
LOC: HO.SSS 10:18
PROVIDERS: PCP Family Medicine; Visit Provider Orthopaedic Surgery
PROC: (CPT 20680; principal; 2022-04-13 12:50)
DX: Z47.2 Encounter for removal of internal fixation device (principal); Z96.9 Presence of functional implant, unspecified; Z98.890 Other specified postprocedural states; Z87.81 Personal history of (healed) traumatic fracture; D62 Acute posthemorrhagic anemia; R03.1 Nonspecific low blood-pressure reading; E87.1 Hypo-osmolality and hyponatremia; Z79.899 Other long term (current) drug therapy
CPT/HCPCS: 20680; J0131; J0690; J1100; J1885; J2250; J2405; J2795; J3010

== ENCOUNTER 2022-04-22 07:16 | Outpatient (REF) | payer MEDICARE, SELFPAY ==
--- NOTE | ~2022-04-22 | XR_ITS ---
EXAMINATION: XR KNEE, RIGHT CLINICAL INFORMATION: Pain. COMPARISON: Fluoroscopy dated 04/13/2022. TECHNIQUE: AP and lateral views of the right knee. FINDINGS: Bony alignment and mineralization are normal. No fracture or joint effusion. Alignment is anatomic. There are intact orthopedic screws applied to the patella, with fracture line largely healed. Joint spaces are well maintained. No abnormal soft tissue calcification. There is mild prepatellar soft tissue swelling, without soft tissue gas or foreign body. XR/XR knee RT 2V IMPRESSION: 2 orthopedic screws are again applied to the right patella. There is mild prepatellar soft tissue swelling. No persistent fracture or joint effusion is noted.
== END 2022-04-22 07:17 | disposition home or self-care (01) ==
LOC: HO.HOSX 07:16
PROVIDERS: Visit Provider Physician Assistant
DX: M25.561 Pain in right knee (principal); Z98.890 Other specified postprocedural states
CPT/HCPCS: 73560